=== PATIENT | male | born 1955 | race African-American/Black ===

== ENCOUNTER 2020-02-19 13:54 | Emergency (ER) | payer MEDICAID ==
[~2020-02-19] VITALS: Ht 175.3 cm; Wt 64.0 kg
[~2020-02-19 13:54] MED LIST: ASPI-1497 PO
[2020-02-19] MEDS ORDERED: KETOROLAC 30MG/ML VIAL IV ONE (14:45)
[2020-02-19 15:16] LABS: CHLORIDE 112 mEq/L (98-107)
[2020-02-19 15:19] LABS: BASOPHILS % 0.4 % (0.0-2.0); EOSINOPHILS % 6.4 % (0.0-5.0); HEMATOCRIT. 35.7 % (42.0-52.0); HEMOGLOBIN. 11.9 g/dL (14.0-18.0); LYMPHOCYTES % 23.2 % (20.0-50.0); MEAN CORPUSCULAR HEMOGLOBIN 28.5 pg (28.0-32.0); MEAN CORPUSCULAR VOLUME 85.3 fL (80.0-94.0); MEAN PLATELET VOLUME 7.2 fl (7.4-10.4); MONOCYTES % 7.8 % (2.0-8.0); NEUTROPHILS % 62.2 % (40.0-76.0); PLATELET 237 x1000/uL (130-400); RED BLOOD CELL COUNT 4.18 mill/uL (4.7-6.1); RED CELL DISTRIBUTION WIDTH 15.6 % (11.6-14.6)
[2020-02-19 15:20] LABS: ETHANOL BLOOD < 10 mg/dL
[2020-02-19 16:59] VITALS: BP 126/73
[2020-02-19 17:34] LABS: CLARITY URINE CLOUDY (CLEAR); COLOR URINE YELLOW (YELLOW); KETONES URINE TRACE (NEGATIVE); LEUKOCYTE ESTERASE URINE TRACE (NEGATIVE); NITRITE URINE NEGATIVE (NEGATIVE); OCCULT BLOOD URINE NEGATIVE (NEGATIVE); PH URINE 7.5 (4.5-8.0); PROTEIN URINE NEGATIVE (NEGATIVE); SPECIFIC GRAVITY URINE 1.032 (1.005-1.030)
[2020-02-19 18:00] LABS: *AMPHETAMINES SCREEN URINE NEGATIVE (NEGATIVE); *BARBITURATES SCREEN URINE NEGATIVE (NEGATIVE); *BENZODIAZEPINES SCREEN URINE NEGATIVE (NEGATIVE); CANNABINOID URINE SCREEN NEGATIVE (NEGATIVE)
[2020-02-19 18:01] LABS: *COCAINE SCREEN URINE NEGATIVE (NEGATIVE); METHADONE URINE SCREEN NEGATIVE (NEGATIVE); OPIATES URINE SCREEN NEGATIVE (NEGATIVE); PHENCYCLIDINE URINE SCREEN NEGATIVE (NEGATIVE)
== END 2020-02-19 17:50 | disposition left against medical advice (07) ==
LOC: ER 13:54 → CANBEDREQ 18:37
DX: E87.8 Other disorders of electrolyte and fluid balance, not elsewhere classified (principal); R05 Cough; F20.9 Schizophrenia, unspecified; E78.00 Pure hypercholesterolemia, unspecified; F10.21 Alcohol dependence, in remission; F17.210 Nicotine dependence, cigarettes, uncomplicated
CPT/HCPCS: 36415; 70450; 71045; 80053; 80305; 80320; 81003; 85025; 93005; 96374; 99285; J1885; G0480

== ENCOUNTER 2020-09-06 22:03 | Inpatient (IN) | payer MEDICAID ==
[~2020-09-06] VITALS: Ht 175.3 cm; Wt 65.8 kg
[2020-09-07 00:59] LABS: BASOPHILS % 0.4 % (0.0-2.0); HEMATOCRIT. 36.5 % (42.0-52.0); HEMOGLOBIN. 12.3 g/dL (14.0-18.0); LYMPHOCYTES % 15.6 % (20.0-50.0); MEAN CORPUSCULAR HEMOGLOBIN 28.4 pg (28.0-32.0); MEAN CORPUSCULAR VOLUME 84.2 fL (80.0-94.0); MEAN PLATELET VOLUME 7.1 fl (7.4-10.4); MONOCYTES % 6.3 % (2.0-8.0); NEUTROPHILS % 77.7 % (40.0-76.0); PLATELET 223 x1000/uL (130-400); RED BLOOD CELL COUNT 4.34 mill/uL (4.7-6.1); RED CELL DISTRIBUTION WIDTH 15.3 % (11.6-14.6)
[2020-09-07 01:01] LABS: CHLORIDE 110 mEq/L (98-107)
[2020-09-07 08:50] VITALS: BP 126/56
[2020-09-07 09:00] VITALS: BP 126/85
[2020-09-07] MEDS ORDERED: INFLUENZA VACCINE 05/PF 0.5 ML VIAL IM ONE (10:00)
[2020-09-07] MEDS ORDERED: PNEUMOCOCCAL 23-VAL P-SAC VAC 0.5 ML IM ONE (10:00)
[2020-09-07 12:17] VITALS: BP 120/77
[2020-09-07] MEDS: ENOXAPARIN 40MG/0.4ML SYR SUBCUT SCH (12:48)
[2020-09-07] MEDS ORDERED: ENOXAPARIN 40MG/0.4ML SYR SUBCUT ONE (13:00)
[2020-09-07] MEDS ORDERED: SODIUM POLYSTYRENE SULFONATE 15 G/60 ML BOT PO SCH (13:00)
[2020-09-07] MEDS ORDERED: ACETAMINOPHEN 325MG TABLET PO PRN (15:15)
[2020-09-07] MEDS ORDERED: ONDANSETRON HCL 4MG/2ML INJ IV PRN (15:15)
[2020-09-07] MEDS ORDERED: MAGNESIUM/ALUMINUM HYDROXIDE/SIMETHICONE 30ML UDC PO PRN (15:15)
[2020-09-07] MEDS ORDERED: DOCUSATE SODIUM 100MG CAPSULE PO PRN (15:15)
[2020-09-07] MEDS ORDERED: CLONIDINE 0.1MG TABLET PO PRN (15:15)
[2020-09-07] MEDS ORDERED: IPRATROPIUM/ALBUTEROL 0.5-3(2.5)MG/3ML NEB HHN PRN (15:15)
[2020-09-07 16:06] VITALS: BP 130/88
[2020-09-07 19:16] LABS: TOTAL IRON BINDING CAPACITY 340 ug/dL (250-450)
[2020-09-07 20:00] VITALS: BP 121/84
[2020-09-07] MEDS ORDERED: MULT-1234 MT (20:05)
[2020-09-07] MEDS: HYDROCODONE/ACETAMINOPHEN 5/325MG TABLET PO PRN (21:05)
[2020-09-07 22:45] LABS: CLARITY URINE CLEAR (CLEAR); COLOR URINE YELLOW (YELLOW); KETONES URINE TRACE (NEGATIVE); LEUKOCYTE ESTERASE URINE NEGATIVE (NEGATIVE); NITRITE URINE NEGATIVE (NEGATIVE); OCCULT BLOOD URINE NEGATIVE (NEGATIVE); PH URINE 6.5 (4.5-8.0); PROTEIN URINE NEGATIVE (NEGATIVE); SPECIFIC GRAVITY URINE 1.029 (1.005-1.030)
[2020-09-07 22:59] LABS: *AMPHETAMINES SCREEN URINE NEGATIVE (NEGATIVE); *BARBITURATES SCREEN URINE NEGATIVE (NEGATIVE); *BENZODIAZEPINES SCREEN URINE NEGATIVE (NEGATIVE)
[2020-09-07 23:01] LABS: *COCAINE SCREEN URINE NEGATIVE (NEGATIVE); CANNABINOID URINE SCREEN NEGATIVE (NEGATIVE); METHADONE URINE SCREEN NEGATIVE (NEGATIVE); OPIATES URINE SCREEN NEGATIVE (NEGATIVE); PHENCYCLIDINE URINE SCREEN NEGATIVE (NEGATIVE)
[2020-09-08] VITALS: BP 108/71
[2020-09-08] MEDS: HYDROCODONE/ACETAMINOPHEN 5/325MG TABLET PO PRN (02:54)
[2020-09-08 04:00] VITALS: BP 111/64
[2020-09-08] MEDS: OMEPRAZOLE 20MG CAPSULE EXTENDED RELEASE PO SCH (06:43)
[2020-09-08 06:50] LABS: BASOPHILS % 0.4 % (0.0-2.0); EOSINOPHILS % 3.5 % (0.0-5.0); HEMATOCRIT. 35.1 % (42.0-52.0); HEMOGLOBIN. 11.7 g/dL (14.0-18.0); LYMPHOCYTES % 34.6 % (20.0-50.0); MEAN CORPUSCULAR HEMOGLOBIN 28.4 pg (28.0-32.0); MEAN CORPUSCULAR VOLUME 85.3 fL (80.0-94.0); MEAN PLATELET VOLUME 7.5 fl (7.4-10.4); MONOCYTES % 7.2 % (2.0-8.0); NEUTROPHILS % 54.3 % (40.0-76.0); PLATELET 199 x1000/uL (130-400); RED BLOOD CELL COUNT 4.11 mill/uL (4.7-6.1); RED CELL DISTRIBUTION WIDTH 15.5 % (11.6-14.6)
[2020-09-08 07:14] LABS: PHOSPHORUS 3.6 mg/dL (2.5-4.9)
[2020-09-08 07:15] LABS: LDL CHOLESTEROL 84 mg/dL (5-100)
[2020-09-08 07:16] LABS: HDL CHOLESTEROL 94 mg/dL (40-59)
[2020-09-08 07:42] LABS: CHLORIDE 104 mEq/L (98-107)
[2020-09-08 08:00] VITALS: BP 145/85
[2020-09-08 09:03] LABS: BG BASE EXCESS 1.9 mmol/L (-2.0-2.0); BG CARBOXYHEMOGLOBIN 0.3 % (0.5-1.5); BG DEOXYHEMOGLOBIN 2.7 % (0.0-5.0); BG FRACTION INSPIRED OXYGEN 21; BG METHEMOGLOBIN 0.2 % (0.0-1.5); BG OXYGEN SATURATION 97.3 % (92.0-98.5); BG OXYHEMOGLOBIN 96.8 % (94.0-97.0); BG PCO2 43.7 mmHg (35.0-45.0); BG PH 7.408 (7.350-7.450); BG PO2 93.8 mmHg (75.0-100.0); BG SAMPLE SITE RIGHT RADIAL; BG TOTAL HEMOGLOBIN 12.8 g/dL (12.0-18.0); BG VENT MODE ROOM AIR
[2020-09-08] MEDS: ENOXAPARIN 40MG/0.4ML SYR SUBCUT SCH (09:53)
[2020-09-08 16:00] VITALS: BP 101/68
[2020-09-08 20:00] VITALS: BP 113/76
[2020-09-09] VITALS: BP 110/68
[2020-09-09 05:17] VITALS: BP 131/70
[2020-09-09 05:53] LABS: BASOPHILS % 0.3 % (0.0-2.0); EOSINOPHILS % 5.8 % (0.0-5.0); HEMATOCRIT. 37.6 % (42.0-52.0); HEMOGLOBIN. 12.4 g/dL (14.0-18.0); LYMPHOCYTES % 27.5 % (20.0-50.0); MEAN CORPUSCULAR HEMOGLOBIN 28.4 pg (28.0-32.0); MEAN CORPUSCULAR VOLUME 86.3 fL (80.0-94.0); MEAN PLATELET VOLUME 7.5 fl (7.4-10.4); MONOCYTES % 9.7 % (2.0-8.0); NEUTROPHILS % 56.7 % (40.0-76.0); PLATELET 208 x1000/uL (130-400); RED BLOOD CELL COUNT 4.36 mill/uL (4.7-6.1); RED CELL DISTRIBUTION WIDTH 15.3 % (11.6-14.6)
[2020-09-09 06:07] LABS: CHLORIDE 107 mEq/L (98-107)
[2020-09-09] MEDS: ENOXAPARIN 40MG/0.4ML SYR SUBCUT SCH (08:27)
[2020-09-09] MEDS: OMEPRAZOLE 20MG CAPSULE EXTENDED RELEASE PO SCH (08:27)
[2020-09-09 20:00] VITALS: BP 118/80
[2020-09-09] MEDS: FAMOTIDINE 20MG TABLET PO SCH (21:38)
[2020-09-10 00:05] VITALS: BP 103/62
[2020-09-10 04:00] VITALS: BP 100/60
[2020-09-10 08:00] VITALS: BP 111/71
[2020-09-10] MEDS: ENOXAPARIN 40MG/0.4ML SYR SUBCUT SCH (08:42)
[2020-09-10] MEDS: FAMOTIDINE 20MG TABLET PO SCH ×2 (08:42→21:28)
[2020-09-10 12:00] VITALS: BP 100/70
[2020-09-10 16:00] VITALS: BP 109/66
[2020-09-10 20:00] VITALS: BP 113/91
[2020-09-11 00:40] VITALS: BP 109/73
[2020-09-11 01:09] VITALS: BP_SYST 109; BP_SYST 131; BP_DIAS 73; BP_DIAS 92
[2020-09-11 04:30] VITALS: BP 131/92
== END 2020-09-11 06:35 | disposition home or self-care (01) | DRG 203 ==
LOC: ER 22:03 → ENRESERV 09-07 07:21 → 6WST 09-07 09:02
PROVIDERS: ADMIT Internal Medicine; ATTEND Internal Medicine
DX: M94.0 Chondrocostal junction syndrome [Tietze] (principal); E87.5 Hyperkalemia; E87.8 Other disorders of electrolyte and fluid balance, not elsewhere classified; F20.9 Schizophrenia, unspecified; J44.9 Chronic obstructive pulmonary disease, unspecified; D64.9 Anemia, unspecified; F17.200 Nicotine dependence, unspecified, uncomplicated; I10 Essential (primary) hypertension; G90.8 Other disorders of autonomic nervous system; Z79.82 Long term (current) use of aspirin; Z79.899 Other long term (current) drug therapy; Z88.8 Allergy status to other drugs, medicaments and biological substances
CPT/HCPCS: 36415; 36600; 71045; 80048; 80053; 80061; 80076; 80305; 81003; 82375; 82805; 83540; 83550; 83735; 83880; 84100; 84443; 84484; 85025; 90732; 93005; 93306; 93880; 93970; 97162; 99285; J1650

== ENCOUNTER 2020-09-19 19:15 | Emergency (ER) | payer MEDICAID ==
[~2020-09-19] VITALS: Ht 175.3 cm; Wt 65.0 kg
[~2020-09-19 19:15] MED LIST changes: +MULT-1234 MT
[2020-09-19 22:22] LABS: BASOPHILS % 0.5 % (0.0-2.0); EOSINOPHILS % 4.3 % (0.0-5.0); HEMATOCRIT. 37.1 % (42.0-52.0); HEMOGLOBIN. 12.5 g/dL (14.0-18.0); MEAN CORPUSCULAR HEMOGLOBIN 28.9 pg (28.0-32.0); MEAN CORPUSCULAR VOLUME 85.8 fL (80.0-94.0); MEAN PLATELET VOLUME 6.9 fl (7.4-10.4); MONOCYTES % 6.4 % (2.0-8.0); NEUTROPHILS % 67.8 % (40.0-76.0); PLATELET 217 x1000/uL (130-400); RED BLOOD CELL COUNT 4.33 mill/uL (4.7-6.1); RED CELL DISTRIBUTION WIDTH 15.5 % (11.6-14.6)
[2020-09-19 22:28] LABS: CHLORIDE 110 mEq/L (98-107)
[2020-09-20] MEDS ORDERED: ACETAMINOPHEN 325MG TABLET PO ONE (00:45)
[2020-09-20 05:29] VITALS: BP 127/80
== END 2020-09-20 06:01 | disposition home or self-care (01) ==
LOC: ER 19:15
DX: R07.89 Other chest pain (principal); J44.9 Chronic obstructive pulmonary disease, unspecified; E78.00 Pure hypercholesterolemia, unspecified; F20.9 Schizophrenia, unspecified; Z79.82 Long term (current) use of aspirin
CPT/HCPCS: 36415; 71045; 80053; 83880; 84484; 85025; 93005; 99285

== ENCOUNTER 2021-01-16 13:33 | Emergency (ER) | payer MEDICAID ==
[~2021-01-16] VITALS: Ht 175.3 cm; Wt 69.0 kg
[2021-01-16 16:40] VITALS: BP 139/79
[2021-01-16] MEDS ORDERED: B50 MT (17:01)
[2021-01-16] MEDS ORDERED: RISP4TAB31 MT (17:01)
== END 2021-01-16 17:23 | disposition home or self-care (01) ==
LOC: ER 13:33
DX: Z76.0 Encounter for issue of repeat prescription (principal); E78.00 Pure hypercholesterolemia, unspecified; Z79.82 Long term (current) use of aspirin; Z86.59 Personal history of other mental and behavioral disorders
CPT/HCPCS: 99281; 99283

== ENCOUNTER 2021-10-07 22:54 | Emergency (ER) | payer MEDICARE, OTHER ==
[~2021-10-07] VITALS: Ht 175.3 cm; Wt 75.0 kg
[~2021-10-07 22:54] MED LIST changes: +B50 MT; +RISP4TAB31 MT
[2021-10-08] MEDS ORDERED: KETOROLAC 60MG/2ML VIAL IM ONE
[2021-10-08] MEDS ORDERED: METH-653 MT (01:27)
[2021-10-08] MEDS ORDERED: IBUP-2029 MT (01:27)
[2021-10-08 01:53] VITALS: BP 111/62
== END 2021-10-08 01:52 | disposition home or self-care (01) ==
LOC: ER 22:54
DX: M54.42 Lumbago with sciatica, left side (principal); R05.9 Cough, unspecified
CPT/HCPCS: 72100; 73502; 96372; 99284; J1885

== ENCOUNTER 2021-11-17 03:24 | Emergency (ER) | payer MEDICARE, OTHER ==
[~2021-11-17] VITALS: Ht 172.7 cm; Wt 75.0 kg
[~2021-11-17 03:24] MED LIST changes: +IBUP-2029 MT; +METH-653 MT
[2021-11-17 04:00] VITALS: BP 150/94
== END 2021-11-17 09:51 | disposition left against medical advice (07) ==
LOC: ER 03:24
DX: Z53.21 Procedure and treatment not carried out due to patient leaving prior to being seen by health care provider (principal)

== ENCOUNTER 2021-12-02 04:05 | Emergency (ER) | payer MEDICARE, OTHER ==
[~2021-12-02] VITALS: Ht 175.3 cm; Wt 70.0 kg
[2021-12-02 04:46] VITALS: BP 121/80
[2021-12-02 11:29] LABS: BASOPHILS % 0.5 % (0.0-2.0); EOSINOPHILS % 6.3 % (0.0-5.0); HEMOGLOBIN. 13.3 g/dL (14.0-18.0); LYMPHOCYTES % 29.3 % (20.0-50.0); MEAN CORPUSCULAR HEMOGLOBIN 27.5 pg (28.0-32.0); MEAN CORPUSCULAR VOLUME 85.1 fL (80.0-94.0); MEAN PLATELET VOLUME 6.7 fl (7.4-10.4); MONOCYTES % 7.3 % (2.0-8.0); NEUTROPHILS % 56.6 % (40.0-76.0); PLATELET 233 x1000/uL (130-400); RED BLOOD CELL COUNT 4.82 mill/uL (4.7-6.1); RED CELL DISTRIBUTION WIDTH 15.8 % (11.6-14.6)
[2021-12-02 11:33] LABS: CHLORIDE 110 mEq/L (98-107)
[2021-12-02 11:44] LABS: *AMPHETAMINES SCREEN URINE NEGATIVE (NEGATIVE); *BARBITURATES SCREEN URINE NEGATIVE (NEGATIVE); *BENZODIAZEPINES SCREEN URINE NEGATIVE (NEGATIVE); *COCAINE SCREEN URINE NEGATIVE (NEGATIVE); CANNABINOID URINE SCREEN PRESUMTIVE POSITIVE (NEGATIVE); METHADONE URINE SCREEN NEGATIVE (NEGATIVE); OPIATES URINE SCREEN NEGATIVE (NEGATIVE); PHENCYCLIDINE URINE SCREEN NEGATIVE (NEGATIVE)
[2021-12-02 11:48] LABS: ETHANOL BLOOD < 10 mg/dL
== END 2021-12-02 12:53 | disposition home or self-care (01) ==
LOC: ER 04:05
DX: R07.89 Other chest pain (principal); F31.9 Bipolar disorder, unspecified; Z79.899 Other long term (current) drug therapy
CPT/HCPCS: 36415; 71045; 80053; 80305; 80320; 83880; 84443; 84484; 85025; 93005; 99285; G0480

== ENCOUNTER 2023-04-07 07:42 | Emergency (ER) | payer MEDICARE, MEDICAID ==
[~2023-04-07] VITALS: Ht 177.8 cm; Wt 77.0 kg
[2023-04-07 07:51] VITALS: TEMP 98.4; O2SAT 98
[2023-04-07] MEDS ORDERED: KETOROLAC 60MG/2ML VIAL IM ONE (08:00)
[2023-04-07] MEDS ORDERED: ACETAMINOPHEN WITH CODEINE 300/30MG TABLET PO ONE (08:00)
[2023-04-07 08:30] VITALS: BP 136/84; PULSE 88; RESP 18
[2023-04-07] MEDS ORDERED: IBUP-2028 PO (09:59)
[2023-04-07] MEDS ORDERED: T3 PO (09:59)
== END 2023-04-07 10:16 | disposition home or self-care (01) ==
LOC: ER 07:42
DX: M54.50 Low back pain, unspecified (principal); F31.9 Bipolar disorder, unspecified; Z79.899 Other long term (current) drug therapy
CPT/HCPCS: 99283; 96372; J1885

== ENCOUNTER 2023-07-19 00:51 | Emergency (ER) | payer MEDICARE, OTHER ==
[~2023-07-19] VITALS: Ht 177.8 cm; Wt 72.0 kg
[~2023-07-19 00:51] MED LIST changes: +ALBU18HF2 IH; +BACL-141 MT; +FLUT1DIS3 INH; +IBUP-2028 PO; +LEVO750T68 MT; +T3 PO; +TUSSL MT
[2023-07-19 01:36] VITALS: O2SAT 100
[2023-07-19] MEDS: IBUPROFEN 400MG TABLET PO ONE (06:00)
[2023-07-19 07:33] VITALS: BP 113/77; PULSE 62; RESP 18; TEMP 97.5
== END 2023-07-19 07:38 | disposition home or self-care (01) ==
LOC: ER 00:51
DX: M54.9 Dorsalgia, unspecified (principal); I10 Essential (primary) hypertension; J45.909 Unspecified asthma, uncomplicated; Z79.82 Long term (current) use of aspirin; Z79.899 Other long term (current) drug therapy
CPT/HCPCS: 72100; 99283

== ENCOUNTER 2023-07-20 00:04 | Emergency (ER) | payer MEDICARE, OTHER ==
[~2023-07-20] VITALS: Ht 177.8 cm; Wt 83.0 kg
[2023-07-20 00:19] VITALS: O2SAT 99
[2023-07-20] MEDS: ACETAMINOPHEN 325MG TABLET PO ONE (06:30)
[2023-07-20 07:56] VITALS: BP 146/71; PULSE 99; RESP 16; TEMP 97.3
== END 2023-07-20 07:57 | disposition home or self-care (01) ==
LOC: ER 00:17
DX: M19.09 Primary osteoarthritis, other specified site (principal); I10 Essential (primary) hypertension; F10.20 Alcohol dependence, uncomplicated; Z88.8 Allergy status to other drugs, medicaments and biological substances; Y90.9 Presence of alcohol in blood, level not specified
CPT/HCPCS: 99282

== ENCOUNTER 2023-07-22 00:49 | Emergency (ER) | payer MEDICARE, OTHER ==
[~2023-07-22] VITALS: Ht 177.8 cm; Wt 86.0 kg
[2023-07-22 00:55] VITALS: O2SAT 100
[2023-07-22 01:05] VITALS: TEMP 97.9
[2023-07-22] MEDS: IBUPROFEN 600MG TABLET PO STA (01:59)
[2023-07-22 02:25] LABS: BASOPHILS % 0.6 % (0.0-2.0); EOSINOPHILS % 6.6 % (0.0-5.0); HEMATOCRIT. 35.3 % (42.0-52.0); HEMOGLOBIN. 11.5 g/dL (14.0-18.0); LYMPHOCYTES % 36.4 % (20.0-50.0); MEAN CORPUSCULAR HEMOGLOBIN 27.3 pg (28.0-32.0); MEAN CORPUSCULAR HGB CONC 32.7 g/dL (31.0-37.0); MEAN CORPUSCULAR VOLUME 83.5 fL (80.0-94.0); MEAN PLATELET VOLUME 6.3 fl (7.4-10.4); MONOCYTES % 8.5 % (2.0-8.0); NEUTROPHILS % 47.9 % (40.0-76.0); PLATELET 366 x1000/uL (130-400); RED BLOOD CELL COUNT 4.23 mill/uL (4.7-6.1); RED CELL DISTRIBUTION WIDTH 15.3 % (11.6-14.6); WHITE BLOOD COUNT 5.7 x1000/uL (4.5-11.0)
[2023-07-22 02:40] LABS: ALANINE AMINOTRANSFERASE 11 IU/L (10-49); ALBUMIN 3.8 g/dL (3.2-4.8); ASPARTATE AMINOTRANSFERASE 23 IU/L (<34); BILIRUBIN TOTAL 0.3 mg/dL (0.1-1.0); CALCIUM 8.5 mg/dL (8.7-10.4); CARBON DIOXIDE 26 mEq/L (21-32); CHLORIDE 110 mEq/L (98-107); CREATININE 0.7 mg/dL (0.6-1.3); GLUCOSE 80 mg/dL (70-105); POTASSIUM 3.9 mEq/L (3.5-5.1); PROTEIN TOTAL 7.6 g/dL (6.0-8.3); SODIUM 141 mEq/L (136-145); UREA NITROGEN BLOOD 13 mg/dL (9-23)
[2023-07-22 02:57] LABS: TROPONIN I HIGH SENSITIVITY < 4 ng/L (3.0-53)
[2023-07-22 04:21] LABS: TROPONIN I HIGH SENSITIVITY < 4 ng/L (3.0-53)
[2023-07-22 05:45] VITALS: BP 137/86; PULSE 60; RESP 8
[2023-07-22] MEDS: IBUPROFEN 600MG TABLET PO NR (05:45)
== END 2023-07-22 05:52 | disposition home or self-care (01) ==
LOC: ER 00:49
DX: R07.89 Other chest pain (principal); I10 Essential (primary) hypertension; Z79.899 Other long term (current) drug therapy
CPT/HCPCS: 36415; 71045; 80053; 84484; 85025; 93005; 99285

== ENCOUNTER 2023-07-27 01:43 | Emergency (ER) | payer MEDICARE, OTHER ==
[~2023-07-27] VITALS: Ht 177.8 cm; Wt 70.0 kg
[2023-07-27 02:27] VITALS: O2SAT 98
[2023-07-27 04:07] LABS: BASOPHILS % 0.6 % (0.0-2.0); EOSINOPHILS % 4.8 % (0.0-5.0); HEMATOCRIT. 35.2 % (42.0-52.0); HEMOGLOBIN. 11.8 g/dL (14.0-18.0); LYMPHOCYTES % 40.3 % (20.0-50.0); MEAN CORPUSCULAR HEMOGLOBIN 28.1 pg (28.0-32.0); MEAN CORPUSCULAR HGB CONC 33.4 g/dL (31.0-37.0); MEAN CORPUSCULAR VOLUME 84.1 fL (80.0-94.0); MEAN PLATELET VOLUME 6.6 fl (7.4-10.4); MONOCYTES % 5.3 % (2.0-8.0); PLATELET 324 x1000/uL (130-400); RED BLOOD CELL COUNT 4.18 mill/uL (4.7-6.1); RED CELL DISTRIBUTION WIDTH 15.7 % (11.6-14.6); WHITE BLOOD COUNT 6.2 x1000/uL (4.5-11.0)
[2023-07-27 04:28] LABS: PARTIAL THROMBOPLASTIN TIME 26.2 sec (23.4-31.0); PROTHROMBIN TIME 10.8 sec (9.6-11.0)
[2023-07-27 04:37] LABS: POTASSIUM 3.9 mEq/L (3.5-5.1); SODIUM 142 mEq/L (136-145)
[2023-07-27 04:38] LABS: CARBON DIOXIDE 24 mEq/L (21-32); CHLORIDE 111 mEq/L (98-107); GLUCOSE 78 mg/dL (70-105)
[2023-07-27 04:46] LABS: ALANINE AMINOTRANSFERASE 14 IU/L (10-49); ALBUMIN 3.9 g/dL (3.2-4.8); ASPARTATE AMINOTRANSFERASE 32 IU/L (<34); BILIRUBIN TOTAL 0.3 mg/dL (0.1-1.0); CALCIUM 8.3 mg/dL (8.7-10.4); CREATININE 0.7 mg/dL (0.6-1.3); PROTEIN TOTAL 7.5 g/dL (6.0-8.3); UREA NITROGEN BLOOD 11 mg/dL (9-23)
[2023-07-27 04:47] LABS: TROPONIN I HIGH SENSITIVITY < 4 ng/L (3.0-53)
[2023-07-27 05:35] LABS: ETHANOL BLOOD 219 mg/dL (<10)
[2023-07-27 08:57] VITALS: BP 133/67; PULSE 70; RESP 17; TEMP 98
== END 2023-07-27 09:15 | disposition home or self-care (01) ==
LOC: ER 01:43
DX: F10.129 Alcohol abuse with intoxication, unspecified (principal); Z20.822 Contact with and (suspected) exposure to COVID-19; Y90.7 Blood alcohol level of 200-239 mg/100 ml
CPT/HCPCS: 80053; 80320; 83880; 83605; 85025; 85610; 85730; 84484; 87804 ×2; 36415; 71045; 93005; 99285; 87426; Z7610; G0480

== ENCOUNTER 2023-07-31 01:52 | Emergency (ER) | payer MEDICARE, OTHER ==
[~2023-07-31] VITALS: Ht 167.6 cm; Wt 70.0 kg
[2023-07-31 01:59] VITALS: BP 125/85; PULSE 79; RESP 18; TEMP 98.4; O2SAT 99
[2023-07-31] MEDS ORDERED: MAGNESIUM/ALUMINUM HYDROXIDE/SIMETHICONE 30ML UDC PO ONE (02:00)
[2023-07-31] MEDS ORDERED: SODIUM CHLORIDE 0.9% 1,000 ML IV ONE (02:00)
[2023-07-31] MEDS ORDERED: ASPIRIN 325MG EC TABLET PO ONE (02:00)
[2023-07-31] MEDS ORDERED: ACETAMINOPHEN 325MG TABLET PO STA (02:00)
[2023-07-31 03:37] LABS: BASOPHILS % 0.4 % (0.0-2.0); EOSINOPHILS % 5.5 % (0.0-5.0); HEMATOCRIT. 35.2 % (42.0-52.0); HEMOGLOBIN. 11.4 g/dL (14.0-18.0); LYMPHOCYTES % 32.8 % (20.0-50.0); MEAN CORPUSCULAR HEMOGLOBIN 26.8 pg (28.0-32.0); MEAN CORPUSCULAR HGB CONC 32.4 g/dL (31.0-37.0); MEAN CORPUSCULAR VOLUME 82.6 fL (80.0-94.0); NEUTROPHILS % 54.3 % (40.0-76.0); PLATELET 240 x1000/uL (130-400); RED BLOOD CELL COUNT 4.26 mill/uL (4.7-6.1); RED CELL DISTRIBUTION WIDTH 16.1 % (11.6-14.6); WHITE BLOOD COUNT 6.1 x1000/uL (4.5-11.0)
[2023-07-31 04:06] LABS: ALANINE AMINOTRANSFERASE 12 IU/L (10-49); ALBUMIN 4.1 g/dL (3.2-4.8); ASPARTATE AMINOTRANSFERASE 23 IU/L (<34); BILIRUBIN TOTAL 0.4 mg/dL (0.1-1.0); CALCIUM 8.4 mg/dL (8.7-10.4); CARBON DIOXIDE 22 mEq/L (21-32); CHLORIDE 110 mEq/L (98-107); CREATININE 0.7 mg/dL (0.6-1.3); ETHANOL BLOOD 107 mg/dL (<10); GLUCOSE 91 mg/dL (70-105); POTASSIUM 3.3 mEq/L (3.5-5.1); PROTEIN TOTAL 7.6 g/dL (6.0-8.3); SODIUM 141 mEq/L (136-145); UREA NITROGEN BLOOD 12 mg/dL (9-23)
[2023-07-31 04:37] LABS: TROPONIN I HIGH SENSITIVITY < 4 ng/L (3.0-53)
== END 2023-07-31 03:05 | disposition home or self-care (01) ==
LOC: ER 01:52
DX: F10.129 Alcohol abuse with intoxication, unspecified (principal); Z00.00 Encounter for general adult medical examination without abnormal findings; Z79.899 Other long term (current) drug therapy; Y90.5 Blood alcohol level of 100-119 mg/100 ml
CPT/HCPCS: 80053; 80320; 83880; 83690; 85025; 84484; 36415; 71045; 93005; 99285; J7030; G0480

== ENCOUNTER 2023-08-03 01:26 | Emergency (ER) | payer MEDICARE, OTHER ==
[~2023-08-03] VITALS: Ht 177.8 cm; Wt 83.0 kg
[2023-08-03 01:36] VITALS: TEMP 97.8; O2SAT 98
[2023-08-03 06:30] VITALS: BP 119/77; PULSE 78; RESP 17
[2023-08-03] MEDS: KETOROLAC 30MG/ML VIAL IM ONE (06:30)
[2023-08-03] MEDS: METHOCARBAMOL 500MG TABLET PO ONE (06:30)
[2023-08-03] MEDS ORDERED: METH-653 MT (07:26)
[2023-08-03] MEDS ORDERED: IBUP-2029 MT (07:26)
== END 2023-08-03 10:22 | disposition home or self-care (01) ==
LOC: ER 01:26
DX: M51.36 Other intervertebral disc degeneration, lumbar region (principal); M47.817 Spondylosis without myelopathy or radiculopathy, lumbosacral region; F31.9 Bipolar disorder, unspecified; J44.9 Chronic obstructive pulmonary disease, unspecified; I10 Essential (primary) hypertension; F20.9 Schizophrenia, unspecified
CPT/HCPCS: 99284; 72040; 72100; 96372; J1885

== ENCOUNTER 2023-08-14 23:23 | Emergency (ER) | payer MEDICARE, OTHER ==
[~2023-08-14] VITALS: Ht 177.8 cm; Wt 68.0 kg
[2023-08-14 23:36] VITALS: TEMP 98.7; O2SAT 98
[2023-08-15] MEDS ORDERED: METH57CR13 TOP (02:09)
[2023-08-15] MEDS ORDERED: NAPR-679 MT (02:09)
[2023-08-15 02:33] VITALS: BP 137/68; PULSE 78; RESP 17
== END 2023-08-15 02:38 | disposition home or self-care (01) ==
LOC: ER 23:35
DX: M79.10 Myalgia, unspecified site (principal); F31.9 Bipolar disorder, unspecified; J44.9 Chronic obstructive pulmonary disease, unspecified; I10 Essential (primary) hypertension; F20.9 Schizophrenia, unspecified; Z79.899 Other long term (current) drug therapy
CPT/HCPCS: 99281; 99282

== ENCOUNTER 2023-08-18 01:55 | Emergency (ER) | payer MEDICARE, MEDICAID ==
[~2023-08-18] VITALS: Ht 177.8 cm; Wt 67.0 kg
[~2023-08-18 01:55] MED LIST changes: +METH57CR13 TOP; +NAPR-679 MT
[2023-08-18 03:21] VITALS: BP 112/77; PULSE 73; RESP 16; TEMP 97.8; O2SAT 100
[2023-08-18] MEDS ORDERED: ACET-2708 MT (04:13)
[2023-08-18] MEDS ORDERED: METO-293 MT (04:13)
[2023-08-18] MEDS: ACETAMINOPHEN 325MG TABLET PO ONE (04:15)
[2023-08-18] MEDS: METOCLOPRAMIDE HCL 5MG TABLET PO ONE (04:15)
== END 2023-08-18 05:35 | disposition home or self-care (01) ==
LOC: ER 01:55
DX: G44.209 Tension-type headache, unspecified, not intractable (principal); F31.9 Bipolar disorder, unspecified; J44.9 Chronic obstructive pulmonary disease, unspecified; I10 Essential (primary) hypertension; F20.9 Schizophrenia, unspecified; Z88.8 Allergy status to other drugs, medicaments and biological substances
CPT/HCPCS: 99283; J8597

== ENCOUNTER 2023-08-18 20:28 | Emergency (ER) | payer MEDICARE, MEDICAID ==
[~2023-08-18] VITALS: Ht 177.8 cm; Wt 86.0 kg
[~2023-08-18 20:28] MED LIST changes: +ACET-2708 MT; +METO-293 MT
[2023-08-18 20:40] VITALS: O2SAT 99
[2023-08-19] MEDS: KETOROLAC 60MG/2ML VIAL IM ONE (01:27)
[2023-08-19 03:09] VITALS: BP 141/84; PULSE 62; RESP 13; TEMP 98.2
== END 2023-08-19 03:12 | disposition home or self-care (01) ==
LOC: ER 20:28
DX: M79.602 Pain in left arm (principal); M79.601 Pain in right arm; F31.9 Bipolar disorder, unspecified; J44.9 Chronic obstructive pulmonary disease, unspecified; I10 Essential (primary) hypertension; F20.9 Schizophrenia, unspecified; V98.8XXA Other specified transport accidents, initial encounter; Y93.89 Activity, other specified; Y92.89 Other specified places as the place of occurrence of the external cause; Y99.8 Other external cause status
CPT/HCPCS: 99284; 73060; 73070; 73090; 73100; 96372; J1885; Z7610

== ENCOUNTER 2023-08-26 00:30 | Emergency (ER) | payer MEDICARE, MEDICAID ==
[~2023-08-26] VITALS: Ht 177.8 cm; Wt 82.0 kg
[2023-08-26 02:59] VITALS: O2SAT 100
[2023-08-26 06:02] LABS: HEMATOCRIT. 39.3 % (42.0-52.0); HEMOGLOBIN. 12.9 g/dL (14.0-18.0); MEAN CORPUSCULAR HEMOGLOBIN 27.9 pg (28.0-32.0); MEAN CORPUSCULAR HGB CONC 32.9 g/dL (31.0-37.0); MEAN CORPUSCULAR VOLUME 84.7 fL (80.0-94.0); PLATELET 245 x1000/uL (130-400); RED BLOOD CELL COUNT 4.64 mill/uL (4.7-6.1); RED CELL DISTRIBUTION WIDTH 17.1 % (11.6-14.6); WHITE BLOOD COUNT 5.7 x1000/uL (4.5-11.0)
[2023-08-26 06:06] LABS: CHLORIDE 110 mEq/L (98-107); POTASSIUM 3.9 mEq/L (3.5-5.1); SODIUM 141 mEq/L (136-145)
[2023-08-26 06:07] LABS: CARBON DIOXIDE 26 mEq/L (21-32)
[2023-08-26 06:12] LABS: CREATININE 0.7 mg/dL (0.6-1.3); GLUCOSE 72 mg/dL (70-105)
[2023-08-26 06:13] LABS: INR 0.9; TROPONIN I HIGH SENSITIVITY 4 ng/L (3.0-53); UREA NITROGEN BLOOD 13 mg/dL (9-23)
[2023-08-26 06:14] LABS: ALANINE AMINOTRANSFERASE 12 IU/L (10-49); ALBUMIN 4.6 g/dL (3.2-4.8); ASPARTATE AMINOTRANSFERASE 28 IU/L (<34)
[2023-08-26 06:15] LABS: BILIRUBIN TOTAL 0.6 mg/dL (0.1-1.0); PROTEIN TOTAL 8.6 g/dL (6.0-8.3)
[2023-08-26 06:18] LABS: DIFFERENTIAL COMMENT 1
[2023-08-26 08:29] LABS: PLATELET ESTIMATE NORMAL
[2023-08-26] MEDS: METHOCARBAMOL 500MG TABLET PO ONE (08:53)
[2023-08-26] MEDS: KETOROLAC 30MG/ML VIAL IV ONE (08:53)
[2023-08-26 12:17] VITALS: BP 136/88; PULSE 72; RESP 14; TEMP 97.8
== END 2023-08-26 12:22 | disposition home or self-care (01) ==
LOC: ER 00:56
DX: R07.89 Other chest pain (principal); M54.30 Sciatica, unspecified side; Z79.899 Other long term (current) drug therapy
CPT/HCPCS: 80053; 83880; 85025; 85610; 84484; 36415; 71045; 93005; 96374; 99285; J1885; Z7610

== ENCOUNTER 2023-08-30 01:54 | Emergency (ER) | payer MEDICARE, MEDICAID ==
[~2023-08-30] VITALS: Ht 177.8 cm; Wt 67.0 kg
[2023-08-30 02:18] VITALS: TEMP 98; O2SAT 100
[2023-08-30 03:04] LABS: HEMATOCRIT. 37.5 % (42.0-52.0); HEMOGLOBIN. 12.5 g/dL (14.0-18.0); MEAN CORPUSCULAR HEMOGLOBIN 27.9 pg (28.0-32.0); MEAN CORPUSCULAR HGB CONC 33.4 g/dL (31.0-37.0); MEAN CORPUSCULAR VOLUME 83.5 fL (80.0-94.0); PLATELET 221 x1000/uL (130-400); RED BLOOD CELL COUNT 4.49 mill/uL (4.7-6.1); WHITE BLOOD COUNT 5.5 x1000/uL (4.5-11.0)
[2023-08-30 03:06] LABS: DIFFERENTIAL COMMENT 1
[2023-08-30 04:20] LABS: CALCIUM 9.8 mg/dL (8.7-10.4); CHLORIDE 108 mEq/L (98-107); SODIUM 139 mEq/L (136-145)
[2023-08-30 04:21] LABS: CARBON DIOXIDE 27 mEq/L (21-32)
[2023-08-30 04:26] LABS: CREATININE 0.8 mg/dL (0.6-1.3); GLUCOSE 84 mg/dL (70-105); UREA NITROGEN BLOOD 14 mg/dL (9-23)
[2023-08-30 04:38] LABS: TROPONIN I HIGH SENSITIVITY < 4 ng/L (3.0-53)
[2023-08-30 05:44] LABS: PLATELET ESTIMATE NORMAL
[2023-08-30] MEDS ORDERED: IBUP-2028 MT (06:00)
[2023-08-30 06:05] VITALS: BP 121/80; PULSE 62; RESP 16
== END 2023-08-30 06:28 | disposition home or self-care (01) ==
LOC: ER 01:54
DX: R07.9 Chest pain, unspecified (principal); Z88.8 Allergy status to other drugs, medicaments and biological substances
CPT/HCPCS: 36415; 71045; 80048; 84484; 85025; 93005; 99285

== ENCOUNTER 2023-09-06 06:04 | Emergency (ER) | payer MEDICARE, OTHER ==
[~2023-09-06] VITALS: Ht 177.8 cm; Wt 81.0 kg
[~2023-09-06 06:04] MED LIST changes: +IBUP-2028 MT
[2023-09-06 06:24] VITALS: O2SAT 97
[2023-09-06 07:17] LABS: CHLORIDE 110 mEq/L (98-107); POTASSIUM 3.9 mEq/L (3.5-5.1); SODIUM 141 mEq/L (136-145)
[2023-09-06 07:18] LABS: CALCIUM 9.7 mg/dL (8.7-10.4); CARBON DIOXIDE 25 mEq/L (21-32)
[2023-09-06 07:23] LABS: CREATININE 0.8 mg/dL (0.6-1.3); GLUCOSE 69 mg/dL (70-105); UREA NITROGEN BLOOD 16 mg/dL (9-23)
[2023-09-06 07:26] LABS: TROPONIN I HIGH SENSITIVITY < 4 ng/L (3.0-53)
[2023-09-06 07:32] LABS: BASOPHILS % 0.3 % (0.0-2.0); EOSINOPHILS % 5.7 % (0.0-5.0); HEMATOCRIT. 38.3 % (42.0-52.0); HEMOGLOBIN. 12.5 g/dL (14.0-18.0); LYMPHOCYTES % 35.1 % (20.0-50.0); MEAN CORPUSCULAR HEMOGLOBIN 27.2 pg (28.0-32.0); MEAN CORPUSCULAR HGB CONC 32.7 g/dL (31.0-37.0); MEAN CORPUSCULAR VOLUME 83.4 fL (80.0-94.0); MEAN PLATELET VOLUME 7.1 fl (7.4-10.4); MONOCYTES % 8.5 % (2.0-8.0); NEUTROPHILS % 50.4 % (40.0-76.0); PLATELET 239 x1000/uL (130-400); RED CELL DISTRIBUTION WIDTH 16.4 % (11.6-14.6); WHITE BLOOD COUNT 6.5 x1000/uL (4.5-11.0)
[2023-09-06 09:22] VITALS: BP 128/78; PULSE 73; RESP 18; TEMP 97.9
[2023-09-06] MEDS: MAGNESIUM/ALUMINUM HYDROXIDE/SIMETHICONE 30ML UDC PO NR (09:24)
[2023-09-06] MEDS: ACETAMINOPHEN 325MG TABLET PO NR (09:24)
== END 2023-09-06 09:24 | disposition home or self-care (01) ==
LOC: ER 06:04
DX: K29.20 Alcoholic gastritis without bleeding (principal); R07.89 Other chest pain; K21.9 Gastro-esophageal reflux disease without esophagitis; Z88.8 Allergy status to other drugs, medicaments and biological substances
CPT/HCPCS: 36415; 71045; 80048; 84484; 85025; 93005; 99285

== ENCOUNTER 2023-09-07 17:31 | Emergency (ER) | payer MEDICARE, OTHER ==
[~2023-09-07] VITALS: Ht 177.8 cm; Wt 73.0 kg
[2023-09-07 17:45] VITALS: BP 115/61; TEMP 98.1; O2SAT 100
[2023-09-07 17:59] VITALS: PULSE 98
[2023-09-07] MEDS ORDERED: ACETAMINOPHEN 325MG TABLET PO ONE (20:45)
== END 2023-09-07 21:44 | disposition left against medical advice (07) ==
LOC: ER 17:31
DX: M25.531 Pain in right wrist (principal); F10.20 Alcohol dependence, uncomplicated; Y90.9 Presence of alcohol in blood, level not specified
CPT/HCPCS: 73110; 99283

== ENCOUNTER 2023-09-07 23:55 | Emergency (ER) | payer MEDICARE, OTHER ==
[~2023-09-07] VITALS: Ht 177.8 cm; Wt 73.0 kg
[2023-09-08 00:11] VITALS: O2SAT 100
[2023-09-08 02:01] VITALS: BP 128/85; PULSE 60; RESP 14; TEMP 97.9
== END 2023-09-08 02:01 | disposition home or self-care (01) ==
LOC: ER 09-08 00:18
DX: M25.531 Pain in right wrist (principal); Z79.899 Other long term (current) drug therapy
CPT/HCPCS: 99281

== ENCOUNTER 2023-09-11 23:22 | Emergency (ER) | payer MEDICARE, OTHER ==
[~2023-09-11] VITALS: Ht 177.8 cm; Wt 76.0 kg
[2023-09-12 01:49] VITALS: O2SAT 99
[2023-09-12] MEDS: IBUPROFEN 600MG TABLET PO ONE (06:45)
[2023-09-12] MEDS: ACETAMINOPHEN 325MG TABLET PO ONE (06:45)
[2023-09-12 08:08] VITALS: BP 136/87; PULSE 80; RESP 16; TEMP 97.7
== END 2023-09-12 08:09 | disposition home or self-care (01) ==
LOC: ER 23:36
DX: M46.92 Unspecified inflammatory spondylopathy, cervical region (principal); M79.601 Pain in right arm; Z79.899 Other long term (current) drug therapy
CPT/HCPCS: 99283; 72040; Z7610

== ENCOUNTER 2023-09-14 20:41 | Emergency (ER) | payer MEDICARE, OTHER ==
[~2023-09-14] VITALS: Ht 177.8 cm; Wt 71.3 kg
[2023-09-14 20:47] VITALS: BP 105/79; PULSE 71; RESP 16; TEMP 98; O2SAT 99
[2023-09-15] MEDS ORDERED: PERM1LIQ MC (00:33)
== END 2023-09-15 00:43 | disposition home or self-care (01) ==
LOC: ER 20:41
DX: R21 Rash and other nonspecific skin eruption (principal); Z79.899 Other long term (current) drug therapy
CPT/HCPCS: 99281

== ENCOUNTER 2023-09-19 23:58 | Emergency (ER) | payer MEDICARE, OTHER ==
[~2023-09-19] VITALS: Ht 172.7 cm; Wt 175.0 kg
[~2023-09-19 23:58] MED LIST changes: +PERM1LIQ MC
[2023-09-20 00:04] VITALS: O2SAT 100
[2023-09-20 00:37] LABS: CHLORIDE 110 mEq/L (98-107); POTASSIUM 4.1 mEq/L (3.5-5.1); SODIUM 140 mEq/L (136-145)
[2023-09-20 00:38] LABS: BASOPHILS % 0.6 % (0.0-2.0); CALCIUM 8.8 mg/dL (8.7-10.4); CARBON DIOXIDE 26 mEq/L (21-32); EOSINOPHILS % 8.1 % (0.0-5.0); HEMATOCRIT. 37.4 % (42.0-52.0); HEMOGLOBIN. 12.3 g/dL (14.0-18.0); LYMPHOCYTES % 33.7 % (20.0-50.0); MEAN CORPUSCULAR HEMOGLOBIN 27.6 pg (28.0-32.0); MEAN CORPUSCULAR HGB CONC 32.8 g/dL (31.0-37.0); MEAN CORPUSCULAR VOLUME 84.2 fL (80.0-94.0); MEAN PLATELET VOLUME 6.8 fl (7.4-10.4); MONOCYTES % 7.7 % (2.0-8.0); NEUTROPHILS % 49.9 % (40.0-76.0); PLATELET 239 x1000/uL (130-400); RED BLOOD CELL COUNT 4.44 mill/uL (4.7-6.1); RED CELL DISTRIBUTION WIDTH 16.6 % (11.6-14.6); WHITE BLOOD COUNT 4.8 x1000/uL (4.5-11.0)
[2023-09-20 00:43] LABS: CREATININE 0.8 mg/dL (0.6-1.3); GLUCOSE 68 mg/dL (70-105); UREA NITROGEN BLOOD 12 mg/dL (9-23)
[2023-09-20 00:45] LABS: TROPONIN I HIGH SENSITIVITY < 4 ng/L (3.0-53)
[2023-09-20 04:50] VITALS: TEMP 97.6
[2023-09-20] MEDS: MORPHINE SULFATE 4 MG/ML INJ (FOR IV/IM USE) IV ONE (05:44)
[2023-09-20] MEDS: ASPIRIN 325MG EC TABLET PO ONE (05:45)
[2023-09-20 06:32] VITALS: BP 116/77; PULSE 51; RESP 11
[2023-09-20 09:05] LABS: TROPONIN I HIGH SENSITIVITY < 4 ng/L (3.0-53)
[2023-09-20] MEDS ORDERED: CLONIDINE 0.1MG TABLET PO PRN (13:00)
[2023-09-20] MEDS ORDERED: IPRATROPIUM/ALBUTEROL 0.5-3(2.5)MG/3ML NEB HHN PRN (13:00)
[2023-09-20] MEDS ORDERED: ACETAMINOPHEN 325MG TABLET PO PRN ×2 (13:00)
[2023-09-20] MEDS ORDERED: DOCUSATE SODIUM 100MG CAPSULE PO PRN (13:00)
[2023-09-20] MEDS ORDERED: ONDANSETRON HCL 4MG/2ML INJ IV PRN (13:00)
[2023-09-20] MEDS ORDERED: PANTOPRAZOLE SODIUM 40 MG/VIAL IV SCH (13:00)
== END 2023-09-20 11:30 | disposition left against medical advice (07) ==
LOC: ER 23:58 → EDBEDREQTM 09-20 06:42 → EDBEDREQ 09-20 06:42 → CANBEDREQ 09-20 09:19 → ER 09-20 11:30
DX: R07.89 Other chest pain (principal); Z79.899 Other long term (current) drug therapy; Z79.82 Long term (current) use of aspirin
CPT/HCPCS: 99285; 80048; 85025; 85379; 84484; 36415; 96374; 71045; 93005; J2270

== ENCOUNTER 2023-09-22 00:06 | Emergency (ER) | payer MEDICARE, OTHER ==
[~2023-09-22] VITALS: Ht 177.8 cm; Wt 77.0 kg
[2023-09-22 01:14] LABS: BASOPHILS % 0.2 % (0.0-2.0); EOSINOPHILS % 4.5 % (0.0-5.0); HEMATOCRIT. 37.3 % (42.0-52.0); HEMOGLOBIN. 12.3 g/dL (14.0-18.0); LYMPHOCYTES % 32.7 % (20.0-50.0); MEAN CORPUSCULAR VOLUME 84.6 fL (80.0-94.0); MEAN PLATELET VOLUME 6.7 fl (7.4-10.4); MONOCYTES % 7.5 % (2.0-8.0); NEUTROPHILS % 55.1 % (40.0-76.0); PLATELET 231 x1000/uL (130-400); RED BLOOD CELL COUNT 4.41 mill/uL (4.7-6.1); RED CELL DISTRIBUTION WIDTH 16.9 % (11.6-14.6); WHITE BLOOD COUNT 6.3 x1000/uL (4.5-11.0)
[2023-09-22 01:25] LABS: CHLORIDE 107 mEq/L (98-107); SODIUM 137 mEq/L (136-145)
[2023-09-22 01:26] LABS: CALCIUM 9.1 mg/dL (8.7-10.4); CARBON DIOXIDE 24 mEq/L (21-32)
[2023-09-22 01:31] LABS: CREATININE 0.8 mg/dL (0.6-1.3)
[2023-09-22 01:32] LABS: GLUCOSE 74 mg/dL (70-105); UREA NITROGEN BLOOD 17 mg/dL (9-23)
[2023-09-22 01:37] VITALS: BP 121/86; PULSE 70; RESP 16; TEMP 98.6; O2SAT 100
[2023-09-22 01:38] LABS: TROPONIN I HIGH SENSITIVITY < 4 ng/L (3.0-53)
[2023-09-22] MEDS ORDERED: NAPR-679 MT (03:48)
== END 2023-09-22 04:14 | disposition home or self-care (01) ==
LOC: ER 00:06
DX: F10.129 Alcohol abuse with intoxication, unspecified (principal); R52 Pain, unspecified
CPT/HCPCS: 36415; 71045; 80048; 84484; 85025; 93005; 99285

== ENCOUNTER 2023-09-27 00:20 | Emergency (ER) | payer MEDICARE, OTHER ==
[~2023-09-27] VITALS: Ht 172.7 cm; Wt 72.0 kg
[2023-09-27 00:39] VITALS: PULSE 92; O2SAT 100
[2023-09-27] MEDS ORDERED: BACL-141 MT (02:56)
[2023-09-27 03:00] VITALS: BP 113/79; RESP 16; TEMP 97.7
[2023-09-27] MEDS: LIDOCAINE 5% PATCH TOP ONE (03:00)
[2023-09-27] MEDS: ACETAMINOPHEN 325MG TABLET PO ONE (03:00)
== END 2023-09-27 03:59 | disposition home or self-care (01) ==
LOC: ER 00:20
DX: M54.9 Dorsalgia, unspecified (principal); Z00.00 Encounter for general adult medical examination without abnormal findings; F17.200 Nicotine dependence, unspecified, uncomplicated; Z79.899 Other long term (current) drug therapy
CPT/HCPCS: 99283

== ENCOUNTER 2023-09-30 02:06 | Emergency (ER) | payer MEDICARE, OTHER ==
[~2023-09-30] VITALS: Ht 177.8 cm; Wt 77.0 kg
[2023-09-30 02:23] VITALS: O2SAT 99
[2023-09-30] MEDS ORDERED: P50 MT (05:28)
[2023-09-30] MEDS ORDERED: PERM60CR4 TP (05:28)
[2023-09-30 05:46] VITALS: BP 147/77; PULSE 67; RESP 15; TEMP 98.4
== END 2023-09-30 05:47 | disposition home or self-care (01) ==
LOC: ER 02:06
DX: R21 Rash and other nonspecific skin eruption (principal); F10.20 Alcohol dependence, uncomplicated; Z98.890 Other specified postprocedural states; Y90.9 Presence of alcohol in blood, level not specified
CPT/HCPCS: 99283

== ENCOUNTER 2023-10-02 22:28 | Inpatient (IN) | payer MEDICARE, OTHER ==
[~2023-10-02] VITALS: Ht 177.8 cm; Wt 71.7 kg
[~2023-10-02 22:28] MED LIST changes: +P50 MT; +PERM60CR4 TP
[2023-10-02 23:14] VITALS: O2SAT 100
[2023-10-03 00:08] LABS: HEMATOCRIT. 35.5 % (42.0-52.0); HEMOGLOBIN. 11.7 g/dL (14.0-18.0); MEAN CORPUSCULAR HEMOGLOBIN 27.7 pg (28.0-32.0); MEAN CORPUSCULAR VOLUME 83.8 fL (80.0-94.0); MEAN PLATELET VOLUME 6.6 fl (7.4-10.4); PLATELET 212 x1000/uL (130-400); RED BLOOD CELL COUNT 4.23 mill/uL (4.7-6.1); RED CELL DISTRIBUTION WIDTH 16.6 % (11.6-14.6); WHITE BLOOD COUNT 5.7 x1000/uL (4.5-11.0)
[2023-10-03 00:14] LABS: CHLORIDE 112 mEq/L (98-107); POTASSIUM 3.9 mEq/L (3.5-5.1); SODIUM 142 mEq/L (136-145)
[2023-10-03 00:15] LABS: CALCIUM 8.8 mg/dL (8.7-10.4); CARBON DIOXIDE 24 mEq/L (21-32)
[2023-10-03 00:20] LABS: CREATININE 0.7 mg/dL (0.6-1.3); GLUCOSE 99 mg/dL (70-105); UREA NITROGEN BLOOD 13 mg/dL (9-23)
[2023-10-03 00:22] LABS: ALANINE AMINOTRANSFERASE 17 IU/L (10-49); ALBUMIN 4.2 g/dL (3.2-4.8); ASPARTATE AMINOTRANSFERASE 25 IU/L (<34); BILIRUBIN TOTAL 0.3 mg/dL (0.1-1.0); DIFFERENTIAL COMMENT 1
[2023-10-03 00:24] LABS: TROPONIN I HIGH SENSITIVITY < 4 ng/L (3.0-53)
[2023-10-03 03:57] LABS: ATYPICAL LYMPHOCYTES 3
[2023-10-03 04:03] LABS: PLATELET ESTIMATE NORMAL
[2023-10-03 04:04] LABS: OVALOCYTES 2+; TARGET CELLS 3+; TEAR DROP CELLS 2+
[2023-10-03 08:56] VITALS: BP 130/91; PULSE 63; RESP 19; TEMP 97.5
[2023-10-03 09:00] VITALS: BP 130/91; PULSE 63; RESP 19; TEMP 97.5
[2023-10-03] MEDS ORDERED: ONDANSETRON HCL 4MG/2ML INJ IV PRN (09:30)
[2023-10-03] MEDS ORDERED: LORAZEPAM 2MG/ML INJ IV PRN (09:30)
[2023-10-03] MEDS ORDERED: IPRATROPIUM/ALBUTEROL 0.5-3(2.5)MG/3ML NEB HHN PRN (09:30)
[2023-10-03 11:07] VITALS: BP 114/83; PULSE 71; RESP 18; TEMP 98.1
[2023-10-03] MEDS: KETOROLAC 15MG/ML VIAL IV PRN (15:15)
[2023-10-03 15:46] VITALS: BP 123/81; PULSE 60; RESP 19; TEMP 98
[2023-10-03] MEDS ORDERED: FAMO-135 MT (16:33)
[2023-10-03] MEDS: FAMOTIDINE 20MG TABLET PO SCH (16:42)
[2023-10-03] MEDS: MAGNESIUM/ALUMINUM HYDROXIDE/SIMETHICONE 30ML UDC PO PRN (18:46)
[2023-10-03 20:00] VITALS: BP 123/88; PULSE 77; RESP 18; TEMP 97.6
[2023-10-04] VITALS: BP 118/83; PULSE 65; RESP 17; TEMP 97.5
[2023-10-04 04:00] VITALS: BP 135/80; PULSE 66; RESP 18; TEMP 97.5
[2023-10-04 08:00] VITALS: BP 141/92; PULSE 54; RESP 18; TEMP 96.8
== END 2023-10-04 10:27 | disposition home or self-care (01) | DRG 392 ==
LOC: ER 22:28 → 7WST 10-03 06:56 → EDBEDREQ 10-03 07:00
PROVIDERS: ADMIT Internal Medicine; ATTEND Internal Medicine
DX: K21.9 Gastro-esophageal reflux disease without esophagitis (principal); E78.5 Hyperlipidemia, unspecified; I25.10 Atherosclerotic heart disease of native coronary artery without angina pectoris; J44.9 Chronic obstructive pulmonary disease, unspecified; F17.210 Nicotine dependence, cigarettes, uncomplicated; F10.10 Alcohol abuse, uncomplicated; Z79.51 Long term (current) use of inhaled steroids; Z79.82 Long term (current) use of aspirin; Z79.899 Other long term (current) drug therapy; Z88.8 Allergy status to other drugs, medicaments and biological substances
CPT/HCPCS: 36415; 71045; 71260; 80053; 84484; 85025; 93005; 99285; J1885

== ENCOUNTER 2023-12-29 02:58 | Emergency (ER) | payer MEDICARE, MEDICAID ==
[~2023-12-29] VITALS: Ht 177.8 cm; Wt 67.0 kg
[~2023-12-29 02:58] MED LIST changes: +FAMO-135 MT; -IBUP-2028 MT; -IBUP-2028 PO; -IBUP-2029 MT; -LEVO750T68 MT
[2023-12-29 03:01] VITALS: O2SAT 100
[2023-12-29 03:08] VITALS: BP 159/93; PULSE 69; RESP 15; TEMP 36.44736; O2SAT 100
[2023-12-29] MEDS ORDERED: MORPHINE SULFATE 4 MG/ML INJ (FOR IV/IM USE) IV ONE (03:30)
[2023-12-29 03:46] LABS: BASOPHILS % 1.2 % (0.0-2.0); EOSINOPHILS % 6.4 % (0.0-5.0); HEMATOCRIT. 39.9 % (42.0-52.0); HEMOGLOBIN. 12.8 g/dL (14.0-18.0); MEAN CORPUSCULAR HEMOGLOBIN 27.2 pg (28.0-32.0); MEAN PLATELET VOLUME 7.6 fl (7.4-10.4); MONOCYTES % 13.6 % (2.0-8.0); NEUTROPHILS % 69.8 % (40.0-76.0); PLATELET 218 x1000/uL (130-400); RED CELL DISTRIBUTION WIDTH 16.7 % (11.6-14.6); WHITE BLOOD COUNT 6.3 x1000/uL (4.5-11.0)
[2023-12-29 04:01] LABS: CHLORIDE 109 mEq/L (98-107); POTASSIUM 4.2 mEq/L (3.5-5.1); SODIUM 143 mEq/L (136-145)
[2023-12-29 04:02] LABS: CALCIUM 9.9 mg/dL (8.7-10.4); CARBON DIOXIDE 29 mEq/L (21-32)
[2023-12-29 04:07] LABS: GLUCOSE 73 mg/dL (70-105); TROPONIN I HIGH SENSITIVITY 4 ng/L (3.0-53); UREA NITROGEN BLOOD 13 mg/dL (9-23)
[2023-12-29] MEDS: ASPIRIN 81MG TABLET PO ONE (04:32)
[2023-12-29] MEDS: NITROGLYCERIN 0.4MG TABLET SL SL PRN (04:33)
[2023-12-29 05:16] LABS: CREATININE 0.8 mg/dL (0.6-1.3)
[2023-12-29] MEDS ORDERED: HYDROCODONE/ACETAMINOPHEN 5/325MG TABLET PO ONE (05:30)
[2023-12-29] MEDS ORDERED: FAMOTIDINE 20MG TABLET PO ONE (05:30)
[2023-12-29 05:40] LABS: TROPONIN I HIGH SENSITIVITY < 4 ng/L (3.0-53)
[2024-01-14] MEDS ORDERED: MULT-624 MT (14:41)
[2024-01-14] MEDS ORDERED: THIA100T72 PO (14:41)
== END 2023-12-29 05:56 | disposition admitted as inpatient to this hospital (09) ==
LOC: ER 03:22
DX: R07.9 Chest pain, unspecified (principal); F17.200 Nicotine dependence, unspecified, uncomplicated; Z79.899 Other long term (current) drug therapy; Z88.8 Allergy status to other drugs, medicaments and biological substances
CPT/HCPCS: 80048; 85025; 84484; 36415; 71045; 93005; 99285; Z7610 ×2; J2270

== ENCOUNTER 2024-01-11 23:36 | Emergency (ER) | payer MEDICARE, OTHER ==
[~2024-01-11] VITALS: Ht 175.3 cm; Wt 82.0 kg
[2024-01-11 23:45] VITALS: O2SAT 100
[2024-01-12 00:50] LABS: BASOPHILS % 0.6 % (0.0-2.0); EOSINOPHILS % 3.8 % (0.0-5.0); HEMATOCRIT. 36.8 % (42.0-52.0); HEMOGLOBIN. 11.9 g/dL (14.0-18.0); LYMPHOCYTES % 23.2 % (20.0-50.0); MEAN CORPUSCULAR HEMOGLOBIN 28.3 pg (28.0-32.0); MEAN CORPUSCULAR HGB CONC 32.5 g/dL (31.0-37.0); MEAN CORPUSCULAR VOLUME 87.1 fL (80.0-94.0); MEAN PLATELET VOLUME 6.9 fl (7.4-10.4); MONOCYTES % 7.2 % (2.0-8.0); NEUTROPHILS % 65.2 % (40.0-76.0); PLATELET 260 x1000/uL (130-400); RED BLOOD CELL COUNT 4.22 mill/uL (4.7-6.1); RED CELL DISTRIBUTION WIDTH 16.6 % (11.6-14.6); WHITE BLOOD COUNT 7.4 x1000/uL (4.5-11.0)
[2024-01-12 00:59] LABS: CHLORIDE 110 mEq/L (98-107); SODIUM 142 mEq/L (136-145)
[2024-01-12 01:00] LABS: CARBON DIOXIDE 26 mEq/L (21-32)
[2024-01-12 01:01] LABS: CALCIUM 9.4 mg/dL (8.7-10.4)
[2024-01-12 01:05] LABS: CREATININE 0.9 mg/dL (0.6-1.3); DIFFERENTIAL COMMENT 1
[2024-01-12 01:06] LABS: GLUCOSE 65 mg/dL (70-105); TROPONIN I HIGH SENSITIVITY 4 ng/L (3.0-53); UREA NITROGEN BLOOD 15 mg/dL (9-23)
[2024-01-12] MEDS: MAGNESIUM/ALUMINUM HYDROXIDE/SIMETHICONE 30ML UDC PO NR (03:45)
[2024-01-12 04:32] LABS: TROPONIN I HIGH SENSITIVITY 4 ng/L (3.0-53)
[2024-01-12] MEDS ORDERED: MAG355OR21 MT (05:28)
[2024-01-12 06:11] VITALS: BP 126/69; PULSE 67; RESP 15; TEMP 36.83628; O2SAT 97
[2024-01-14] MEDS ORDERED: MULT-624 MT (14:41)
[2024-01-14] MEDS ORDERED: THIA100T72 PO (14:41)
== END 2024-01-12 06:13 | disposition home or self-care (01) ==
LOC: ER 23:36
DX: R10.13 Epigastric pain (principal); R07.89 Other chest pain; E78.00 Pure hypercholesterolemia, unspecified; F17.210 Nicotine dependence, cigarettes, uncomplicated; F12.10 Cannabis abuse, uncomplicated; Z79.899 Other long term (current) drug therapy
CPT/HCPCS: 36415; 71045; 80048; 84484; 85025; 93005; 99285

== ENCOUNTER 2024-01-17 23:21 | Emergency (ER) | payer MEDICAID, MEDICARE ==
[~2024-01-17] VITALS: Ht 177.8 cm; Wt 68.7 kg
[~2024-01-17 23:21] MED LIST changes: -B50 MT; -METH57CR13 TOP; -METO-293 MT; +MULT-624 MT; -NAPR-679 MT; -P50 MT; -PERM1LIQ MC; -PERM60CR4 TP; -T3 PO; +THIA100T72 PO
[2024-01-17 23:50] VITALS: O2SAT 96
[2024-01-18 00:06] LABS: BASOPHILS % 0.4 % (0.0-2.0); EOSINOPHILS % 5.3 % (0.0-5.0); HEMATOCRIT. 37.9 % (42.0-52.0); HEMOGLOBIN. 12.6 g/dL (14.0-18.0); LYMPHOCYTES % 35.7 % (20.0-50.0); MEAN CORPUSCULAR HEMOGLOBIN 28.6 pg (28.0-32.0); MEAN CORPUSCULAR HGB CONC 33.1 g/dL (31.0-37.0); MEAN CORPUSCULAR VOLUME 86.2 fL (80.0-94.0); MEAN PLATELET VOLUME 6.6 fl (7.4-10.4); MONOCYTES % 6.3 % (2.0-8.0); NEUTROPHILS % 52.3 % (40.0-76.0); PLATELET 255 x1000/uL (130-400); RED CELL DISTRIBUTION WIDTH 16.3 % (11.6-14.6); WHITE BLOOD COUNT 6.6 x1000/uL (4.5-11.0)
[2024-01-18 00:15] LABS: CALCIUM 9.1 mg/dL (8.7-10.4); CARBON DIOXIDE 30 mEq/L (21-32)
[2024-01-18 00:20] LABS: CREATININE 0.8 mg/dL (0.6-1.3); GLUCOSE 61 mg/dL (70-105); UREA NITROGEN BLOOD 14 mg/dL (9-23)
[2024-01-18 00:40] LABS: TROPONIN I HIGH SENSITIVITY < 4 ng/L (3.0-53)
[2024-01-18 00:48] LABS: CHLORIDE 109 mEq/L (98-107); SODIUM 143 mEq/L (136-145)
[2024-01-18] MEDS ORDERED: MAGNESIUM/ALUMINUM HYDROXIDE/SIMETHICONE 30ML UDC PO ONE (03:15)
[2024-01-18] MEDS ORDERED: MAG355OR21 MT (06:14)
[2024-01-18 06:20] VITALS: BP 105/83; PULSE 71; RESP 17; TEMP 36.78072; O2SAT 100
== END 2024-01-18 06:27 | disposition home or self-care (01) ==
LOC: ER 23:27
DX: K29.20 Alcoholic gastritis without bleeding (principal); E78.00 Pure hypercholesterolemia, unspecified; F14.10 Cocaine abuse, uncomplicated; Z79.899 Other long term (current) drug therapy
CPT/HCPCS: 36415; 71045; 80048; 84484; 85025; 93005; 99285

== ENCOUNTER 2024-01-18 14:58 | Emergency (ER) | payer MEDICARE, OTHER ==
[~2024-01-18] VITALS: Ht 177.8 cm; Wt 67.0 kg
[~2024-01-18 14:58] MED LIST changes: +MAG355OR21 MT
[2024-01-18 15:00] VITALS: O2SAT 99
[2024-01-18 15:04] VITALS: BP 114/75; PULSE 91; RESP 18; TEMP 98.7; O2SAT 99
== END 2024-01-18 18:48 | disposition home or self-care (01) ==
LOC: ER 14:58
DX: S11.81XD Laceration without foreign body of other specified part of neck, subsequent encounter (principal); F14.90 Cocaine use, unspecified, uncomplicated; F10.20 Alcohol dependence, uncomplicated; F12.90 Cannabis use, unspecified, uncomplicated; Z79.899 Other long term (current) drug therapy; X58.XXXD Exposure to other specified factors, subsequent encounter
CPT/HCPCS: 99281

== ENCOUNTER 2024-01-24 23:52 | Emergency (ER) | payer MEDICARE, OTHER ==
[~2024-01-24] VITALS: Ht 177.8 cm; Wt 67.0 kg
[2024-01-25 00:18] VITALS: O2SAT 98
[2024-01-25 00:45] VITALS: BP 111/65; PULSE 85; TEMP 98.4; O2SAT 98
[2024-01-25] MEDS ORDERED: KETOROLAC 15MG/ML VIAL IM ONE (01:15)
[2024-01-25 02:25] VITALS: RESP 19
== END 2024-01-25 02:45 | disposition home or self-care (01) ==
LOC: ER 23:52
DX: G89.29 Other chronic pain (principal); M79.605 Pain in left leg; M25.512 Pain in left shoulder; F14.10 Cocaine abuse, uncomplicated; F11.10 Opioid abuse, uncomplicated; Z79.899 Other long term (current) drug therapy; Z79.82 Long term (current) use of aspirin; Z79.51 Long term (current) use of inhaled steroids
CPT/HCPCS: 99281; J1885

== ENCOUNTER 2024-01-26 22:54 | Emergency (ER) | payer MEDICARE, OTHER ==
[~2024-01-26] VITALS: Ht 175.3 cm; Wt 68.0 kg
[2024-01-26 22:58] VITALS: PULSE 85; O2SAT 95
[2024-01-26 23:12] VITALS: BP 117/81; RESP 16; TEMP 98; O2SAT 98
[2024-01-27 00:31] LABS: CHLORIDE 108 mEq/L (98-107); SODIUM 141 mEq/L (136-145)
[2024-01-27 00:32] LABS: CALCIUM 8.9 mg/dL (8.7-10.4); CARBON DIOXIDE 28 mEq/L (21-32)
[2024-01-27 00:37] LABS: CREATININE 0.8 mg/dL (0.6-1.3); GLUCOSE 77 mg/dL (70-105); UREA NITROGEN BLOOD 10 mg/dL (9-23)
[2024-01-27 00:43] LABS: TROPONIN I HIGH SENSITIVITY < 4 ng/L (3.0-53)
[2024-01-27 01:38] LABS: BASOPHILS % 0.7 % (0.0-2.0); EOSINOPHILS % 5.2 % (0.0-5.0); HEMATOCRIT. 38.3 % (42.0-52.0); HEMOGLOBIN. 12.4 g/dL (14.0-18.0); LYMPHOCYTES % 38.4 % (20.0-50.0); MEAN CORPUSCULAR HEMOGLOBIN 27.8 pg (28.0-32.0); MEAN CORPUSCULAR HGB CONC 32.3 g/dL (31.0-37.0); MEAN CORPUSCULAR VOLUME 85.9 fL (80.0-94.0); MEAN PLATELET VOLUME 7.3 fl (7.4-10.4); MONOCYTES % 6.5 % (2.0-8.0); NEUTROPHILS % 49.2 % (40.0-76.0); PLATELET 238 x1000/uL (130-400); RED BLOOD CELL COUNT 4.46 mill/uL (4.7-6.1); RED CELL DISTRIBUTION WIDTH 16.1 % (11.6-14.6); WHITE BLOOD COUNT 6.3 x1000/uL (4.5-11.0)
[2024-01-27] MEDS ORDERED: ACETAMINOPHEN 325MG TABLET PO ONE (02:00)
== END 2024-01-27 02:25 | disposition home or self-care (01) ==
LOC: ER 23:13
DX: R07.9 Chest pain, unspecified (principal); F17.200 Nicotine dependence, unspecified, uncomplicated; F14.90 Cocaine use, unspecified, uncomplicated; F10.20 Alcohol dependence, uncomplicated; Z79.899 Other long term (current) drug therapy; Y90.9 Presence of alcohol in blood, level not specified
CPT/HCPCS: 36415; 71045; 80048; 84484; 85025; 99284; 99285

== ENCOUNTER 2024-02-18 22:39 | Emergency (ER) | payer MEDICARE, OTHER ==
[~2024-02-18] VITALS: Ht 177.8 cm; Wt 69.0 kg
[2024-02-18 22:59] VITALS: O2SAT 100
[2024-02-19 00:36] LABS: CHLORIDE 109 mEq/L (98-107); POTASSIUM 3.7 mEq/L (3.5-5.1); SODIUM 142 mEq/L (136-145)
[2024-02-19 00:37] LABS: CARBON DIOXIDE 29 mEq/L (21-32)
[2024-02-19 00:38] LABS: CALCIUM 9.5 mg/dL (8.7-10.4)
[2024-02-19 00:43] LABS: CREATININE 0.8 mg/dL (0.6-1.3); GLUCOSE 81 mg/dL (70-105); UREA NITROGEN BLOOD 14 mg/dL (9-23)
[2024-02-19 00:44] LABS: BASOPHILS % 0.7 % (0.0-2.0); EOSINOPHILS % 4.8 % (0.0-5.0); HEMATOCRIT. 38.8 % (42.0-52.0); HEMOGLOBIN. 12.8 g/dL (14.0-18.0); LYMPHOCYTES % 33.8 % (20.0-50.0); MEAN CORPUSCULAR HGB CONC 32.9 g/dL (31.0-37.0); MEAN CORPUSCULAR VOLUME 88.1 fL (80.0-94.0); MEAN PLATELET VOLUME 7.3 fl (7.4-10.4); MONOCYTES % 8.4 % (2.0-8.0); NEUTROPHILS % 52.3 % (40.0-76.0); PLATELET 210 x1000/uL (130-400); RED CELL DISTRIBUTION WIDTH 16.3 % (11.6-14.6); TROPONIN I HIGH SENSITIVITY 4 ng/L (3.0-53)
[2024-02-19 00:47] LABS: CLARITY URINE CLEAR (CLEAR); COLOR URINE YELLOW (YELLOW); GLUCOSE URINE NEGATIVE (NEGATIVE); KETONES URINE NEGATIVE (NEGATIVE); LEUKOCYTE ESTERASE URINE NEGATIVE (NEGATIVE); NITRITE URINE NEGATIVE (NEGATIVE); OCCULT BLOOD URINE NEGATIVE (NEGATIVE); PROTEIN URINE NEGATIVE (NEGATIVE); SPECIFIC GRAVITY URINE 1.007 (1.005-1.030); UROBILINOGEN URINE 0.2 E.U./dL (0.2-1.0)
[2024-02-19] MEDS ORDERED: TOPUD MT (01:13)
[2024-02-19] MEDS ORDERED: VARE1TAB22 MT (01:13)
[2024-02-19 01:17] VITALS: BP 111/72; PULSE 60; RESP 18; TEMP 36.89184; O2SAT 100
== END 2024-02-19 01:21 | disposition home or self-care (01) ==
LOC: ER 22:39
DX: R07.89 Other chest pain (principal); E78.00 Pure hypercholesterolemia, unspecified; F14.10 Cocaine abuse, uncomplicated; F11.10 Opioid abuse, uncomplicated; Z79.899 Other long term (current) drug therapy; Z79.82 Long term (current) use of aspirin
CPT/HCPCS: 36415; 71045; 80048; 81003; 83880; 84484; 85025; 93005; 99285

== ENCOUNTER 2024-02-24 18:21 | Emergency (ER) | payer MEDICARE, OTHER ==
[~2024-02-24] VITALS: Ht 177.8 cm; Wt 67.0 kg
[~2024-02-24 18:21] MED LIST changes: +TOPUD MT; +VARE1TAB22 MT
[2024-02-24 18:33] VITALS: BP 127/87; PULSE 85; RESP 16; TEMP 98.3; O2SAT 97
[2024-02-24 20:08] LABS: BASOPHILS % 0.5 % (0.0-2.0); EOSINOPHILS % 2.2 % (0.0-5.0); HEMATOCRIT. 39.9 % (42.0-52.0); HEMOGLOBIN. 13.4 g/dL (14.0-18.0); LYMPHOCYTES % 22.9 % (20.0-50.0); MEAN CORPUSCULAR HGB CONC 33.6 g/dL (31.0-37.0); MEAN CORPUSCULAR VOLUME 86.2 fL (80.0-94.0); MEAN PLATELET VOLUME 7.2 fl (7.4-10.4); MONOCYTES % 11.5 % (2.0-8.0); NEUTROPHILS % 62.9 % (40.0-76.0); PLATELET 235 x1000/uL (130-400); RED BLOOD CELL COUNT 4.63 mill/uL (4.7-6.1); RED CELL DISTRIBUTION WIDTH 15.3 % (11.6-14.6); WHITE BLOOD COUNT 8.9 x1000/uL (4.5-11.0)
[2024-02-24 20:10] LABS: CHLORIDE 107 mEq/L (98-107); POTASSIUM 4.3 mEq/L (3.5-5.1); SODIUM 137 mEq/L (136-145)
[2024-02-24 20:11] LABS: CALCIUM 9.3 mg/dL (8.7-10.4); CARBON DIOXIDE 27 mEq/L (21-32)
[2024-02-24 20:16] LABS: CREATININE 0.9 mg/dL (0.6-1.3); GLUCOSE 74 mg/dL (70-105); UREA NITROGEN BLOOD 9 mg/dL (9-23)
[2024-02-24 20:34] LABS: TROPONIN I HIGH SENSITIVITY < 4 ng/L (3.0-53)
[2024-02-25] MEDS ORDERED: P50 MT (01:20)
[2024-02-25] MEDS ORDERED: BENZ200C52 MT (01:20)
== END 2024-02-24 21:00 | disposition left against medical advice (07) ==
LOC: ER 18:21
DX: R07.89 Other chest pain (principal); Z53.21 Procedure and treatment not carried out due to patient leaving prior to being seen by health care provider
CPT/HCPCS: 36415; 71045; 80048; 84484; 85025; 93005

== ENCOUNTER 2024-02-25 00:52 | Emergency (ER) | payer MEDICARE, OTHER ==
[~2024-02-25] VITALS: Ht 177.8 cm; Wt 68.0 kg
[2024-02-25 01:05] VITALS: O2SAT 100
[2024-02-25] MEDS ORDERED: P50 MT (01:20)
[2024-02-25] MEDS ORDERED: BENZ200C52 MT (01:20)
[2024-02-25 01:47] VITALS: BP 145/65; PULSE 70; RESP 18; TEMP 36.89184; O2SAT 100
== END 2024-02-25 01:49 | disposition home or self-care (01) ==
LOC: ER 00:52
DX: R05.9 Cough, unspecified (principal); F14.10 Cocaine abuse, uncomplicated; F11.10 Opioid abuse, uncomplicated; Z79.899 Other long term (current) drug therapy; Z79.82 Long term (current) use of aspirin; Z86.59 Personal history of other mental and behavioral disorders
CPT/HCPCS: 71045; 99283

== ENCOUNTER 2024-03-04 20:44 | Emergency (ER) | payer MEDICARE, OTHER ==
[~2024-03-04] VITALS: Ht 177.8 cm; Wt 66.3 kg
[~2024-03-04 20:44] MED LIST changes: +BENZ200C52 MT; +P50 MT
[2024-03-04 20:49] VITALS: O2SAT 100
[2024-03-04 20:54] VITALS: BP 113/81; PULSE 99; RESP 18; TEMP 97.8
[2024-03-04 22:03] LABS: BASOPHILS % 0.8 % (0.0-2.0); EOSINOPHILS % 5.5 % (0.0-5.0); HEMATOCRIT. 39.5 % (42.0-52.0); HEMOGLOBIN. 13.1 g/dL (14.0-18.0); LYMPHOCYTES % 33.2 % (20.0-50.0); MEAN CORPUSCULAR HEMOGLOBIN 28.6 pg (28.0-32.0); MEAN CORPUSCULAR VOLUME 86.6 fL (80.0-94.0); MEAN PLATELET VOLUME 6.2 fl (7.4-10.4); MONOCYTES % 8.7 % (2.0-8.0); NEUTROPHILS % 51.8 % (40.0-76.0); PLATELET 320 x1000/uL (130-400); RED BLOOD CELL COUNT 4.56 mill/uL (4.7-6.1); RED CELL DISTRIBUTION WIDTH 15.9 % (11.6-14.6)
[2024-03-04 22:10] LABS: CHLORIDE 111 mEq/L (98-107); POTASSIUM 4.3 mEq/L (3.5-5.1); SODIUM 143 mEq/L (136-145)
[2024-03-04 22:11] LABS: CARBON DIOXIDE 27 mEq/L (21-32)
[2024-03-04 22:12] LABS: CALCIUM 9.3 mg/dL (8.7-10.4)
[2024-03-04 22:16] LABS: CREATININE 0.9 mg/dL (0.6-1.3); GLUCOSE 73 mg/dL (70-105); UREA NITROGEN BLOOD 12 mg/dL (9-23)
[2024-03-04 22:18] LABS: ALANINE AMINOTRANSFERASE 15 IU/L (10-49); ALBUMIN 4.2 g/dL (3.2-4.8); ASPARTATE AMINOTRANSFERASE 30 IU/L (<34)
[2024-03-04 22:19] LABS: BILIRUBIN TOTAL 0.3 mg/dL (0.1-1.0); PROTEIN TOTAL 7.9 g/dL (6.0-8.3)
[2024-03-04 22:31] LABS: TROPONIN I HIGH SENSITIVITY < 4 ng/L (3.0-53)
[2024-03-04] MEDS: MAGNESIUM/ALUMINUM HYDROXIDE/SIMETHICONE 30ML UDC PO ONE (22:33)
[2024-03-04] MEDS: FAMOTIDINE 20MG TABLET PO ONE (22:34)
[2024-03-05 00:17] LABS: TROPONIN I HIGH SENSITIVITY < 4 ng/L (3.0-53)
[2024-03-05] MEDS ORDERED: MULT-624 MT (01:06)
[2024-03-05] MEDS ORDERED: THIA100T72 PO (01:06)
== END 2024-03-05 01:19 | disposition home or self-care (01) ==
LOC: ER 20:44
DX: F10.129 Alcohol abuse with intoxication, unspecified (principal); F31.9 Bipolar disorder, unspecified; R07.89 Other chest pain; F20.9 Schizophrenia, unspecified; Z79.899 Other long term (current) drug therapy; Z79.82 Long term (current) use of aspirin; Z79.51 Long term (current) use of inhaled steroids; Z59.00 Homelessness unspecified; Y90.9 Presence of alcohol in blood, level not specified
CPT/HCPCS: 36415; 71045; 80053; 83880; 84484; 85025; 93005; 99285

== ENCOUNTER 2024-03-05 19:03 | Emergency (ER) | payer MEDICARE, OTHER ==
[~2024-03-05] VITALS: Ht 177.8 cm; Wt 68.4 kg
[2024-03-05 19:54] VITALS: O2SAT 100
[2024-03-05 22:06] LABS: HEMATOCRIT 39.1 % (42.0-52.0); HEMOGLOBIN 12.8 g/dL (14.0-18.0); MEAN CORPUSCULAR HEMOGLOBIN 28.4 pg (28.0-32.0); MEAN CORPUSCULAR HGB CONC 32.8 g/dL (31.0-37.0); MEAN CORPUSCULAR VOLUME 86.3 fL (80.0-94.0); PLATELET 325 x1000/uL (130-400); RED BLOOD CELL COUNT 4.53 mill/uL (4.7-6.1); RED CELL DISTRIBUTION WIDTH 15.9 % (11.6-14.6); WHITE BLOOD COUNT 7.9 x1000/uL (4.5-11.0)
[2024-03-05 22:09] LABS: CARBON DIOXIDE 29 mEq/L (21-32); CHLORIDE 109 mEq/L (98-107); POTASSIUM 4.2 mEq/L (3.5-5.1); SODIUM 142 mEq/L (136-145)
[2024-03-05 22:10] LABS: CALCIUM 9.2 mg/dL (8.7-10.4)
[2024-03-05 22:15] LABS: CREATININE 0.8 mg/dL (0.6-1.3); GLUCOSE 76 mg/dL (70-105); UREA NITROGEN BLOOD 11 mg/dL (9-23)
[2024-03-05 22:20] LABS: TROPONIN I HIGH SENSITIVITY < 4 ng/L (3.0-53)
[2024-03-05] MEDS: PSEUDOEPHEDRINE HCL 30MG TABLET PO STA (23:04)
[2024-03-05 23:07] VITALS: BP 136/76; PULSE 71; RESP 18; TEMP 36.78072; O2SAT 99
== END 2024-03-05 23:08 | disposition home or self-care (01) ==
LOC: ER 19:03
DX: B34.9 Viral infection, unspecified (principal); R07.89 Other chest pain; Z79.899 Other long term (current) drug therapy; Z79.82 Long term (current) use of aspirin; Z98.890 Other specified postprocedural states
CPT/HCPCS: 36415; 71045; 80048; 84484; 85027; 93005; 99285

== ENCOUNTER 2024-03-08 02:27 | Emergency (ER) | payer MEDICARE, OTHER ==
[~2024-03-08] VITALS: Ht 177.8 cm; Wt 73.2 kg
[2024-03-08 02:29] VITALS: BP 107/58; O2SAT 99
[2024-03-08 02:30] VITALS: PULSE 70; RESP 18; O2SAT 99
[2024-03-08 02:51] LABS: BASOPHILS % 0.4 % (0.0-2.0); EOSINOPHILS % 3.7 % (0.0-5.0); HEMATOCRIT. 37.6 % (42.0-52.0); LYMPHOCYTES % 28.8 % (20.0-50.0); MEAN CORPUSCULAR HEMOGLOBIN 27.6 pg (28.0-32.0); MEAN CORPUSCULAR HGB CONC 31.9 g/dL (31.0-37.0); MEAN CORPUSCULAR VOLUME 86.4 fL (80.0-94.0); MEAN PLATELET VOLUME 6.6 fl (7.4-10.4); MONOCYTES % 6.5 % (2.0-8.0); NEUTROPHILS % 60.6 % (40.0-76.0); PLATELET 280 x1000/uL (130-400); RED BLOOD CELL COUNT 4.35 mill/uL (4.7-6.1); WHITE BLOOD COUNT 9.9 x1000/uL (4.5-11.0)
[2024-03-08 02:55] LABS: CHLORIDE 110 mEq/L (98-107); POTASSIUM 4.1 mEq/L (3.5-5.1); SODIUM 142 mEq/L (136-145)
[2024-03-08 02:56] LABS: CALCIUM 8.9 mg/dL (8.7-10.4); CARBON DIOXIDE 25 mEq/L (21-32)
[2024-03-08 03:01] LABS: CREATININE 0.8 mg/dL (0.6-1.3); GLUCOSE 83 mg/dL (70-105); UREA NITROGEN BLOOD 12 mg/dL (9-23)
[2024-03-08 03:16] VITALS: TEMP 98
[2024-03-08] MEDS: ACETAMINOPHEN 325MG TABLET PO ONE (03:16)
[2024-03-08 03:46] LABS: TROPONIN I HIGH SENSITIVITY < 4 ng/L (3.0-53)
[2024-03-09] MEDS ORDERED: IBUP-2028 MT (02:08)
== END 2024-03-08 04:00 | disposition home or self-care (01) ==
LOC: ER 02:27
DX: R07.9 Chest pain, unspecified (principal); F14.90 Cocaine use, unspecified, uncomplicated; Z79.899 Other long term (current) drug therapy
CPT/HCPCS: 36415; 71045; 80048; 84484; 85025; 93005; 99285

== ENCOUNTER 2024-03-08 22:33 | Emergency (ER) | payer MEDICARE, OTHER ==
[~2024-03-08] VITALS: Ht 177.8 cm; Wt 68.2 kg
[2024-03-08 22:48] VITALS: TEMP 98; O2SAT 98
[2024-03-09] MEDS: KETOROLAC 30MG/ML VIAL IV ONE (00:37)
[2024-03-09] MEDS: KETOROLAC 30MG/ML VIAL IM ONE (00:59)
[2024-03-09] MEDS ORDERED: IBUP-2028 MT (02:08)
[2024-03-09 02:42] VITALS: BP 122/82; PULSE 70; RESP 15; O2SAT 98
== END 2024-03-09 02:43 | disposition home or self-care (01) ==
LOC: ER 22:33
DX: F10.129 Alcohol abuse with intoxication, unspecified (principal); M25.552 Pain in left hip; M54.9 Dorsalgia, unspecified; F14.90 Cocaine use, unspecified, uncomplicated; F12.90 Cannabis use, unspecified, uncomplicated; Z79.899 Other long term (current) drug therapy; Y90.9 Presence of alcohol in blood, level not specified
CPT/HCPCS: 99284; 80320; 36415; 73521; 72100; J1885; Z7610; G0480

== ENCOUNTER 2024-03-11 21:37 | Emergency (ER) | payer MEDICARE, OTHER ==
[~2024-03-11] VITALS: Ht 177.8 cm; Wt 68.5 kg
[~2024-03-11 21:37] MED LIST changes: +IBUP-2028 MT
[2024-03-11 21:51] VITALS: BP 121/84; PULSE 80; RESP 18; TEMP 97.9; O2SAT 100
== END 2024-03-11 23:55 | disposition home or self-care (01) ==
LOC: ER 21:37
DX: B34.9 Viral infection, unspecified (principal); R05.9 Cough, unspecified; F14.10 Cocaine abuse, uncomplicated; Z79.899 Other long term (current) drug therapy; Z79.82 Long term (current) use of aspirin; Z79.51 Long term (current) use of inhaled steroids
CPT/HCPCS: 99281

== ENCOUNTER 2024-03-25 20:59 | Emergency (ER) | payer MEDICARE, MEDICAID ==
[~2024-03-25] VITALS: Ht 177.8 cm; Wt 70.2 kg
[~2024-03-25 20:59] MED LIST changes: -ACET-2708 MT; -ALBU18HF2 IH; -ASPI-1497 PO; -BACL-141 MT; -BENZ200C52 MT; -FAMO-135 MT; -FLUT1DIS3 INH; -MAG355OR21 MT; -METH-653 MT; -MULT-1234 MT; -P50 MT; -RISP4TAB31 MT; -TUSSL MT; -VARE1TAB22 MT
[2024-03-25 21:01] VITALS: O2SAT 100
[2024-03-25 21:22] VITALS: BP 96/62; PULSE 85; RESP 15; O2SAT 99
[2024-03-25 22:23] VITALS: TEMP 97.7
[2024-03-25] MEDS: ACETAMINOPHEN 500MG TABLET PO ONE (22:23)
[2024-03-25 22:25] LABS: BASOPHILS % 0.9 % (0.0-2.0); EOSINOPHILS % 6.7 % (0.0-5.0); HEMATOCRIT. 36.2 % (42.0-52.0); HEMOGLOBIN. 11.8 g/dL (14.0-18.0); LYMPHOCYTES % 34.6 % (20.0-50.0); MEAN CORPUSCULAR HEMOGLOBIN 28.1 pg (28.0-32.0); MEAN CORPUSCULAR HGB CONC 32.5 g/dL (31.0-37.0); MEAN CORPUSCULAR VOLUME 86.3 fL (80.0-94.0); MEAN PLATELET VOLUME 7.2 fl (7.4-10.4); MONOCYTES % 8.2 % (2.0-8.0); NEUTROPHILS % 49.6 % (40.0-76.0); PLATELET 242 x1000/uL (130-400); RED BLOOD CELL COUNT 4.19 mill/uL (4.7-6.1); RED CELL DISTRIBUTION WIDTH 16.7 % (11.6-14.6); WHITE BLOOD COUNT 5.8 x1000/uL (4.5-11.0)
[2024-03-25 22:38] LABS: CHLORIDE 111 mEq/L (98-107); POTASSIUM 3.8 mEq/L (3.5-5.1); SODIUM 144 mEq/L (136-145)
[2024-03-25 22:39] LABS: CALCIUM 9.1 mg/dL (8.7-10.4); CARBON DIOXIDE 24 mEq/L (21-32)
[2024-03-25 22:44] LABS: CREATININE 0.8 mg/dL (0.6-1.3); GLUCOSE 94 mg/dL (70-105); UREA NITROGEN BLOOD 15 mg/dL (9-23)
[2024-03-25 22:45] LABS: ETHANOL BLOOD 182 mg/dL (<10)
[2024-03-25 22:52] LABS: TROPONIN I HIGH SENSITIVITY < 4 ng/L (3.0-53)
== END 2024-03-26 00:16 | disposition home or self-care (01) ==
LOC: ER 20:59
DX: R07.89 Other chest pain (principal); I10 Essential (primary) hypertension; E78.00 Pure hypercholesterolemia, unspecified; F14.10 Cocaine abuse, uncomplicated; Z79.899 Other long term (current) drug therapy; Z79.1 Long term (current) use of non-steroidal anti-inflammatories (NSAID)
CPT/HCPCS: 36415; 71046; 80048; 80320; 84484; 85025; 93005; 99285; G0480

== ENCOUNTER 2024-03-29 02:27 | Emergency (ER) | payer MEDICARE, MEDICAID ==
[~2024-03-29] VITALS: Ht 177.8 cm; Wt 69.8 kg
[2024-03-29 02:40] VITALS: BP 104/70; PULSE 82; RESP 15; O2SAT 98
[2024-03-29] MEDS ORDERED: NAPR-1176 MT (03:10)
== END 2024-03-29 03:23 | disposition home or self-care (01) ==
LOC: ER 02:38
DX: R07.9 Chest pain, unspecified (principal); E78.00 Pure hypercholesterolemia, unspecified; F14.90 Cocaine use, unspecified, uncomplicated; F10.20 Alcohol dependence, uncomplicated; Z79.899 Other long term (current) drug therapy; Z88.8 Allergy status to other drugs, medicaments and biological substances; Y90.9 Presence of alcohol in blood, level not specified
CPT/HCPCS: 71045; 93005; 99283

== ENCOUNTER 2024-03-30 21:50 | Emergency (ER) | payer MEDICARE, MEDICAID ==
[~2024-03-30] VITALS: Ht 177.8 cm; Wt 70.0 kg
[~2024-03-30 21:50] MED LIST changes: +NAPR-1176 MT
[2024-03-30 22:00] VITALS: O2SAT 100
[2024-03-30 23:42] LABS: CHLORIDE 111 mEq/L (98-107); POTASSIUM 3.7 mEq/L (3.5-5.1); SODIUM 141 mEq/L (136-145)
[2024-03-30 23:43] LABS: CALCIUM 8.6 mg/dL (8.7-10.4); CARBON DIOXIDE 24 mEq/L (21-32)
[2024-03-30 23:48] LABS: CREATININE 0.8 mg/dL (0.6-1.3); GLUCOSE 80 mg/dL (70-105); UREA NITROGEN BLOOD 16 mg/dL (9-23)
[2024-03-31 00:06] LABS: EOSINOPHILS % 5.8 % (0.0-5.0); HEMATOCRIT. 35.7 % (42.0-52.0); HEMOGLOBIN. 11.6 g/dL (14.0-18.0); LYMPHOCYTES % 27.7 % (20.0-50.0); MEAN CORPUSCULAR HGB CONC 32.6 g/dL (31.0-37.0); MEAN CORPUSCULAR VOLUME 85.9 fL (80.0-94.0); MEAN PLATELET VOLUME 7.3 fl (7.4-10.4); MONOCYTES % 8.5 % (2.0-8.0); PLATELET 230 x1000/uL (130-400); RED BLOOD CELL COUNT 4.15 mill/uL (4.7-6.1); RED CELL DISTRIBUTION WIDTH 16.5 % (11.6-14.6); WHITE BLOOD COUNT 5.7 x1000/uL (4.5-11.0)
[2024-03-31 00:08] LABS: TROPONIN I HIGH SENSITIVITY < 4 ng/L (3.0-53)
[2024-03-31 02:25] VITALS: BP 112/74; PULSE 67; RESP 16; TEMP 36.61404; O2SAT 100
== END 2024-03-31 02:27 | disposition home or self-care (01) ==
LOC: ER 21:50
DX: G89.29 Other chronic pain (principal); R07.89 Other chest pain; E78.00 Pure hypercholesterolemia, unspecified
CPT/HCPCS: 36415; 71045; 80048; 84484; 85025; 93005; 99285

== ENCOUNTER 2024-04-14 21:45 | Emergency (ER) | payer MEDICARE, MEDICAID ==
[~2024-04-14] VITALS: Ht 177.8 cm; Wt 70.0 kg
[2024-04-14 21:54] VITALS: O2SAT 97
[2024-04-14 22:09] VITALS: BP 149/78; PULSE 83; RESP 16; TEMP 98.5; O2SAT 100
[2024-04-14 23:46] LABS: BASOPHILS % 0.7 % (0.0-2.0); EOSINOPHILS % 5.7 % (0.0-5.0); HEMATOCRIT. 39.7 % (42.0-52.0); HEMOGLOBIN. 12.8 g/dL (14.0-18.0); LYMPHOCYTES % 39.5 % (20.0-50.0); MEAN CORPUSCULAR HEMOGLOBIN 27.9 pg (28.0-32.0); MEAN CORPUSCULAR HGB CONC 32.3 g/dL (31.0-37.0); MEAN CORPUSCULAR VOLUME 86.3 fL (80.0-94.0); MEAN PLATELET VOLUME 6.9 fl (7.4-10.4); MONOCYTES % 5.1 % (2.0-8.0); PLATELET 279 x1000/uL (130-400); RED CELL DISTRIBUTION WIDTH 16.4 % (11.6-14.6); WHITE BLOOD COUNT 5.5 x1000/uL (4.5-11.0)
[2024-04-14 23:53] LABS: CHLORIDE 110 mEq/L (98-107); POTASSIUM 4.3 mEq/L (3.5-5.1); SODIUM 145 mEq/L (136-145)
[2024-04-14 23:54] LABS: CARBON DIOXIDE 27 mEq/L (21-32)
[2024-04-14 23:55] LABS: CALCIUM 9.1 mg/dL (8.7-10.4)
[2024-04-14 23:59] LABS: CREATININE 0.8 mg/dL (0.6-1.3); GLUCOSE 77 mg/dL (70-105)
[2024-04-15] LABS: UREA NITROGEN BLOOD 12 mg/dL (9-23)
[2024-04-15 00:08] LABS: TROPONIN I HIGH SENSITIVITY < 4 ng/L (3.0-53)
[2024-04-15] MEDS: KETOROLAC 30MG/ML VIAL IM ONE (01:25)
[2024-04-15] MEDS: KETOROLAC 30MG/ML VIAL IM NR (01:33)
[2024-04-16] MEDS ORDERED: IBUP-2030 MT (23:22)
[2024-04-16] MEDS ORDERED: TRAM50TA3 MT (23:22)
== END 2024-04-15 01:33 | disposition home or self-care (01) ==
LOC: ER 21:45
DX: M54.30 Sciatica, unspecified side (principal); E78.00 Pure hypercholesterolemia, unspecified; F14.90 Cocaine use, unspecified, uncomplicated; F15.90 Other stimulant use, unspecified, uncomplicated; Z79.899 Other long term (current) drug therapy
CPT/HCPCS: 99285; 71045; 80048; 85025; 84484; 36415; 93005; 96372; J1885

== ENCOUNTER 2024-04-16 21:29 | Emergency (ER) | payer MEDICARE, OTHER ==
[~2024-04-16] VITALS: Ht 177.8 cm; Wt 67.0 kg
[2024-04-16 21:39] VITALS: TEMP 98.3; O2SAT 100
[2024-04-16 21:40] VITALS: O2SAT 99
[2024-04-16] MEDS ORDERED: IBUP-2030 MT (23:22)
[2024-04-16] MEDS ORDERED: TRAM50TA3 MT (23:22)
[2024-04-16 23:50] VITALS: BP 124/82; PULSE 66; RESP 16
[2024-04-16] MEDS: KETOROLAC 30MG/ML VIAL IM ONE (23:50)
[2024-04-16] MEDS: HYDROCODONE/ACETAMINOPHEN 10/325MG TABLET PO ONE (23:50)
== END 2024-04-16 23:50 | disposition home or self-care (01) ==
LOC: ER 21:29
DX: M25.512 Pain in left shoulder (principal); R07.89 Other chest pain; F14.10 Cocaine abuse, uncomplicated; F11.10 Opioid abuse, uncomplicated; Z79.899 Other long term (current) drug therapy
CPT/HCPCS: 99283; 71045; 93005; 96372; J1885